=== PATIENT | female | born 1985 | race Caucasian/White ===

== ENCOUNTER → 2018-01-06 | Outpatient (CLI) | payer BC ==
[~2018-01-06] MED LIST: IBUP800 PO; VICODIN HP 10-1 EACH PO; Verotin-Gr Cap1 EACH PO
[2018-01-08 12:36] LABS: HPV Genotype 16 Not Detected (NOTDET); HPV Genotype 18 Not Detected (NOTDET)
[2018-01-17 08:30] LABS: HPV High Risk Other Not Detected (NOTDET)
== END | disposition home or self-care (01) ==
LOC: LAB SHORT 12:08 → LAB 12:08
PROVIDERS: Obstetrics & Gynecology
DX: Z01.419 Encounter for gynecological examination (general) (routine) without abnormal findings (principal)
CPT/HCPCS: 87624; G0123

== ENCOUNTER 2019-03-02 00:06 | Inpatient (IN) | payer BC ==
[~2019-03-02] VITALS: Ht 165.1 cm; Wt 98.2 kg
[2019-03-02 00:40] LABS: Source, Urine Voided
[2019-03-02 00:43] LABS: Bilirubin, Urine Neg (Neg); Blood, Urine 1+ (Neg); Glucose Qualitative, Urine Neg (Neg); Ketones, Urine Neg (Neg); Leukocyte Esterase, Urine Neg (Neg); Nitrite, Urine Neg (Neg); Protein, Urine Neg (Neg); Specific Gravity, Urine 1.015 (1.003-1.022); Urobilinogen, Urine NORM (Normal)
[2019-03-02 00:56] LABS: Appearance, Urine Clear (Clear); Color, Urine Yellow (P-Yellow)
[2019-03-02 00:57] LABS: Bacteria Rare /hpf; Red Blood Cells, Urine 0-2 /hpf (0-2); Squamous Epithelial Cells Rare /hpf (Few); White Blood Cells, Urine Not Seen /hpf (0-5)
[2019-03-02 02:12] LABS: BASOPHILS ABSOLUTE AUTO 0.03 K/mm3 (0.00-0.23); BASOPHILS PERCENT AUTO 0 % (0-2); EOSINOPHILS ABSOLUTE AUTO 0.06 K/mm3 (0.00-0.68); EOSINOPHILS PERCENT AUTO 0 % (0-6); Hematocrit 36.7 % (33.0-51.0); Hemoglobin 12.5 g/dL (11.5-16.0); IMMATURE GRAN ABSOLUTE AUTO 0.07 K/mm3 (0.00-0.10); IMMATURE GRAN PERCENT AUTO 1 % (0-1); LYMPHOCYTES ABSOLUTE AUTO 1.39 K/mm3 (0.84-5.20); LYMPHOCYTES PERCENT AUTO 10 % (21-46); MONOCYTES ABSOLUTE AUTO 0.54 K/mm3 (0.16-1.47); MONOCYTES PERCENT AUTO 4 % (4-13); Mean Corpuscular HGB 30.8 pg (26.0-34.0); Mean Corpuscular HGB Conc 34.1 g/dL (31.5-36.5); Mean Corpuscular Volume 90 fL (80-100); Mean Platelet Volume 9.6 fL (9.1-12.4); NEUTROPHILS ABSOLUTE AUTO 11.85 K/mm3 (1.96-9.15); NEUTROPHILS PERCENT AUTO 85 % (41-73); Platelet Count 249 K/mm3 (150-400); RDW Coefficient Variation 13.2 % (11.7-14.2); RDW Standard Deviation 43.9 fL (35.1-46.3); Red Blood Cell Count 4.06 M/mm3 (3.80-5.20); White Blood Cell Count 13.94 K/mm3 (4.00-11.30)
--- NOTE | 2019-03-02 19:15 | NUR ---
REPORT TO TRINI RASMUSSEN RN
[2019-03-03 05:26] LABS: BASOPHILS ABSOLUTE AUTO 0.02 K/mm3 (0.00-0.23); BASOPHILS PERCENT AUTO 0 % (0-2); EOSINOPHILS PERCENT AUTO 1 % (0-6); Hematocrit 29.9 % (33.0-51.0); Hemoglobin 10.1 g/dL (11.5-16.0); IMMATURE GRAN ABSOLUTE AUTO 0.04 K/mm3 (0.00-0.10); IMMATURE GRAN PERCENT AUTO 0 % (0-1); LYMPHOCYTES ABSOLUTE AUTO 1.72 K/mm3 (0.84-5.20); LYMPHOCYTES PERCENT AUTO 18 % (21-46); MONOCYTES ABSOLUTE AUTO 0.69 K/mm3 (0.16-1.47); MONOCYTES PERCENT AUTO 7 % (4-13); Mean Corpuscular HGB Conc 33.8 g/dL (31.5-36.5); Mean Corpuscular Volume 92 fL (80-100); Mean Platelet Volume 9.9 fL (9.1-12.4); NEUTROPHILS ABSOLUTE AUTO 7.13 K/mm3 (1.96-9.15); NEUTROPHILS PERCENT AUTO 74 % (41-73); Platelet Count 185 K/mm3 (150-400); RDW Coefficient Variation 13.3 % (11.7-14.2); RDW Standard Deviation 44.6 fL (35.1-46.3); Red Blood Cell Count 3.26 M/mm3 (3.80-5.20)
== END 2019-03-03 14:23 | disposition home or self-care (01) | DRG 807 ==
LOC: OBS 00:06 → BC 00:06 → OBS 01:29 → BC 01:32
PROVIDERS: Advanced Practice Midwife; ADMIT Nurse Practitioner Obstetrics & Gynecology
PROC: 10E0XZZ Delivery of Products of Conception, External Approach (ICD-10-PCS; principal; 2019-03-02)
PROC: 0HQ9XZZ Repair Perineum Skin, External Approach (ICD-10-PCS; 2019-03-02)
PROC: 3E0S3BZ Introduction of Anesthetic Agent into Epidural Space, Percutaneous Approach (ICD-10-PCS; 2019-03-02)
PROC: 00HU33Z Insertion of Infusion Device into Spinal Canal, Percutaneous Approach (ICD-10-PCS; 2019-03-02)
DX: O34.211 Maternal care for low transverse scar from previous cesarean delivery (principal); Z37.0 Single live birth; O70.0 First degree perineal laceration during delivery; Z3A.39 39 weeks gestation of pregnancy; I95.2 Hypotension due to drugs; T41.3X5A Adverse effect of local anesthetics, initial encounter; Y92.230 Patient room in hospital as the place of occurrence of the external cause; Z67.11 Type A blood, Rh negative
CPT/HCPCS: 36415; 51702; 59025; 81001; 85025; 86850; 86870; 86900; 86901; J1885; J2001; J2405; J2590; J3010; J7120

== ENCOUNTER → 2020-08-29 | Outpatient (CLI) | payer BC | LOC: LAB SHORT 11:43 → PLD 11:43 | DX: L08.89 Other specified local infections of the skin and subcutaneous tissue (principal) | CPT/HCPCS: 88305 ==

== ENCOUNTER 2021-01-01 05:03 | Inpatient (IN) | payer BC, OTHER ==
[~2021-01-01] VITALS: Ht 165.1 cm; Wt 105.0 kg
[2021-01-01 05:34] LABS: BASOPHILS ABSOLUTE AUTO 0.03 K/mm3 (0.00-0.23); BASOPHILS PERCENT AUTO 0 % (0-2); EOSINOPHILS ABSOLUTE AUTO 0.11 K/mm3 (0.00-0.68); EOSINOPHILS PERCENT AUTO 1 % (0-6); Hematocrit 34.5 % (33.0-51.0); Hemoglobin 11.9 g/dL (11.5-16.0); IMMATURE GRAN ABSOLUTE AUTO 0.04 K/mm3 (0.00-0.10); IMMATURE GRAN PERCENT AUTO 0 % (0-1); LYMPHOCYTES ABSOLUTE AUTO 2.02 K/mm3 (0.84-5.20); LYMPHOCYTES PERCENT AUTO 20 % (21-46); MONOCYTES ABSOLUTE AUTO 0.39 K/mm3 (0.16-1.47); MONOCYTES PERCENT AUTO 4 % (4-13); Mean Corpuscular HGB 30.3 pg (26.0-34.0); Mean Corpuscular HGB Conc 34.5 g/dL (31.5-36.5); Mean Corpuscular Volume 88 fL (80-100); Mean Platelet Volume 9.4 fL (9.1-12.4); NEUTROPHILS ABSOLUTE AUTO 7.53 K/mm3 (1.96-9.15); NEUTROPHILS PERCENT AUTO 74 % (41-73); Platelet Count 254 K/mm3 (150-400); RDW Coefficient Variation 13.6 % (11.7-14.2); RDW Standard Deviation 43.3 fL (35.1-46.3); Red Blood Cell Count 3.93 M/mm3 (3.80-5.20); White Blood Cell Count 10.12 K/mm3 (4.00-11.30)
[2021-01-02] MEDS ORDERED: IBUP800 PO (08:28)
[2021-01-02 11:45] LABS: BASOPHILS ABSOLUTE AUTO 0.02 K/mm3 (0.00-0.23); BASOPHILS PERCENT AUTO 0 % (0-2); EOSINOPHILS ABSOLUTE AUTO 0.06 K/mm3 (0.00-0.68); EOSINOPHILS PERCENT AUTO 1 % (0-6); Hematocrit 31.4 % (33.0-51.0); Hemoglobin 10.8 g/dL (11.5-16.0); IMMATURE GRAN ABSOLUTE AUTO 0.04 K/mm3 (0.00-0.10); IMMATURE GRAN PERCENT AUTO 0 % (0-1); LYMPHOCYTES ABSOLUTE AUTO 1.23 K/mm3 (0.84-5.20); LYMPHOCYTES PERCENT AUTO 10 % (21-46); MONOCYTES ABSOLUTE AUTO 0.66 K/mm3 (0.16-1.47); MONOCYTES PERCENT AUTO 6 % (4-13); Mean Corpuscular HGB 30.3 pg (26.0-34.0); Mean Corpuscular HGB Conc 34.4 g/dL (31.5-36.5); Mean Corpuscular Volume 88 fL (80-100); Mean Platelet Volume 9.7 fL (9.1-12.4); NEUTROPHILS ABSOLUTE AUTO 10.01 K/mm3 (1.96-9.15); NEUTROPHILS PERCENT AUTO 83 % (41-73); Platelet Count 222 K/mm3 (150-400); RDW Coefficient Variation 13.4 % (11.7-14.2); RDW Standard Deviation 43.2 fL (35.1-46.3); Red Blood Cell Count 3.57 M/mm3 (3.80-5.20); White Blood Cell Count 12.02 K/mm3 (4.00-11.30)
--- NOTE | 2021-01-02 18:55 | NUR ---
STABLE. NO ACUTE CHANGES. REPORT GIVEN TO ONCOMING SHIFT. CARING FOR SELF AND BABY INDEPENDANTLY.
[2021-01-03] MEDS ORDERED: Norco 5-325 Ta1 EACH PO (09:01)
--- NOTE | 2021-01-03 09:40 | NUR ---
DISCHARGE PT ABOUT READY TO GO HOME. VERBALIZES UNDERSTANDING OF DC INSTRUCTIONS AND FOLLOW UP APOINTMENTS. EXPERIENCED PARENTS AND CARING FOR SELF AND BABY INDEPENDANTLY. NO QUESTIONS OR CONCERNS.
== END 2021-01-03 10:52 | disposition home or self-care (01) | DRG 807 ==
LOC: OBS 05:03 → BC 05:08 → OBS 05:12 → BC 05:14
PROVIDERS: ADMIT Nurse Practitioner Obstetrics & Gynecology
PROC: 10E0XZZ Delivery of Products of Conception, External Approach (ICD-10-PCS; principal; 2021-01-01)
PROC: 10907ZC Drainage of Amniotic Fluid, Therapeutic from Products of Conception, Via Natural or Artificial Opening (ICD-10-PCS; 2021-01-01)
PROC: 3E033VJ Introduction of Other Hormone into Peripheral Vein, Percutaneous Approach (ICD-10-PCS; 2021-01-01)
PROC: 10H07YZ Insertion of Other Device into Products of Conception, Via Natural or Artificial Opening (ICD-10-PCS; 2021-01-01)
PROC: 3E0R3BZ Introduction of Anesthetic Agent into Spinal Canal, Percutaneous Approach (ICD-10-PCS; 2021-01-01)
PROC: 00HU33Z Insertion of Infusion Device into Spinal Canal, Percutaneous Approach (ICD-10-PCS; 2021-01-01)
PROC: 0HQ9XZZ Repair Perineum Skin, External Approach (ICD-10-PCS; 2021-01-01)
DX: O34.219 Maternal care for unspecified type scar from previous cesarean delivery (principal); Z37.0 Single live birth; Z3A.39 39 weeks gestation of pregnancy; O70.0 First degree perineal laceration during delivery; O69.89X0 Labor and delivery complicated by other cord complications, not applicable or unspecified; Z20.822 Contact with and (suspected) exposure to COVID-19
CPT/HCPCS: 0241U; 36415; 51702; 85025; 86850; 86870; 86900; 86901; A9270; J1885; J2001; J2210; J2590; J3010; J7120

== ENCOUNTER → 2023-09-11 | Outpatient (CLI) | payer OTHER ==
[~2023-09-11] MED LIST changes: +Norco 5-325 Ta1 EACH PO
[2023-09-11 15:56] LABS: BASOPHILS ABSOLUTE AUTO 0.03 K/mm3 (0.00-0.23); BASOPHILS PERCENT AUTO 1 % (0-2); EOSINOPHILS ABSOLUTE AUTO 0.11 K/mm3 (0.00-0.68); EOSINOPHILS PERCENT AUTO 2 % (0-6); Hematocrit 36.9 % (33.0-51.0); Hemoglobin 13.2 g/dL (11.5-16.0); IMMATURE GRAN ABSOLUTE AUTO 0.01 K/mm3 (0.00-0.10); IMMATURE GRAN PERCENT AUTO 0 % (0-1); LYMPHOCYTES ABSOLUTE AUTO 1.12 K/mm3 (0.84-5.20); LYMPHOCYTES PERCENT AUTO 18 % (21-46); MONOCYTES ABSOLUTE AUTO 0.37 K/mm3 (0.16-1.47); MONOCYTES PERCENT AUTO 6 % (4-13); Mean Corpuscular HGB 30.8 pg (26.0-34.0); Mean Corpuscular HGB Conc 35.8 g/dL (31.5-36.5); Mean Corpuscular Volume 86 fL (80-100); Mean Platelet Volume 10.2 fL (9.1-12.4); NEUTROPHILS ABSOLUTE AUTO 4.52 K/mm3 (1.96-9.15); NEUTROPHILS PERCENT AUTO 73 % (41-73); Platelet Count 244 K/mm3 (150-400); RDW Coefficient Variation 12.5 % (11.7-14.2); Red Blood Cell Count 4.29 M/mm3 (3.80-5.20); White Blood Cell Count 6.16 K/mm3 (4.00-11.30)
[2023-09-11 16:35] LABS: Albumin, Blood 4.1 g/dL (3.4-5.0); Albumin/Globulin Ratio 1.1 (0.8-1.8); Bilirubin, Total 5.8 mg/dL (0.1-1.0); Bun/Creatinine Ratio 11.7 (12.0-20.0); Calcium, Blood 8.9 mg/dL (8.5-10.1); Creatinine, Blood 0.68 mg/dL (0.40-1.00); Globulin, Blood 3.7 g/dL (2.2-4.0); Potassium, Blood 3.5 mmol/L (3.5-5.5); Total Protein, Blood 7.8 g/dL (6.4-8.2)
== END ==
LOC: LAB 14:58 → LAB SHORT 14:58
PROVIDERS: Physician Assistant
DX: R10.9 Unspecified abdominal pain (principal)
CPT/HCPCS: 80053; 83690; 85025

== ENCOUNTER 2024-07-23 03:01 | Inpatient (IN) | payer OTHER ==
[~2024-07-23] VITALS: Ht 177.8 cm; Wt 86.9 kg
[2024-07-23] VITALS (70 sets, daily range): BP systolic 50–177; BP diastolic 34–125
[2024-07-23 03:16] LABS: Calcium, Ionized (POC) 1.15 mmol/L (1.10-1.46); Chloride (POC) 107 mmol/L (98-108); Creatinine (POC) 0.9 mg/dL (0.6-1.0); Glucose (ISTAT POC) 473 mg/dL (70-99); Hemoglobin (POC) 12.2 g/dL (12.0-16.0); Potassium (POC) 3.2 mmol/L (3.5-5.5); Sodium (POC) 140 mmol/L (135-148); Total CO2 (POC) 15 mmol/L (21-32)
[2024-07-23 03:24] LABS: Hematocrit 38.5 % (33.0-51.0); Hemoglobin 12.2 g/dL (11.5-16.0); Mean Corpuscular HGB 30.9 pg (26.0-34.0); Mean Corpuscular HGB Conc 31.7 g/dL (31.5-36.5); Mean Corpuscular Volume 98 fL (80-100); NRBC ABSOLUTE 0.04 K/mm3 (0.00-0.02); NRBC Auto 0.2 /100 WBC (0.0-0.2); Platelet Count 180 K/mm3 (150-400); RDW Coefficient Variation 12.7 % (11.7-14.2); RDW Standard Deviation 45.2 fL (35.1-46.3); Red Blood Cell Count 3.95 M/mm3 (3.80-5.20); White Blood Cell Count 26.54 K/mm3 (4.00-11.30)
[2024-07-23] MEDS ORDERED: Heparin Sodium 5000 Units/ML 1ML MDV IV ONE (03:30)
[2024-07-23] MEDS ORDERED: Aspirin 300 MG Supp PR ONE (03:30)
[2024-07-23 03:36] LABS: Bicarbonate Venous 10.1 mmol/L (24.0-30.0); PCO2 Venous 48.3 mmHg (38-42); pH Blood Venous 6.98 (7.34-7.37)
[2024-07-23 03:37] LABS: Base Excess Venous -20.4 mmol/L
[2024-07-23 03:38] LABS: Alanine Aminotransfer (ALT/SGP 471 U/L (12-78); Alk Phos 101 U/L (50-136); Anion Gap 26 mmol/L (3-11); Aspartate Aminotrans (AST/SGOT 386 U/L (12-37); Bilirubin, Total 0.3 mg/dL (0.1-1.0); Blood Urea Nitrogen 15 mg/dL (8-24); Bun/Creatinine Ratio 19.8 (12.0-20.0); CO2, Blood 13 mmol/L (21-32); Calcium, Blood 8.9 mg/dL (8.5-10.1); Chloride, Blood 107 mmol/L (98-108); Creatinine, Blood 0.76 mg/dL (0.40-1.00); Ethanol (Alcohol), Blood, Med <3 mg/dL; Globulin, Blood 2.9 g/dL (2.2-4.0); Glomerular Filtration Rate 102 (60-); Glucose, Blood 474 mg/dL (70-99); Potassium, Blood 3.4 mmol/L (3.5-5.5); Sodium, Blood 143 mmol/L (136-145); Total Protein, Blood 5.9 g/dL (6.4-8.2)
[2024-07-23] MEDS ORDERED: NS 1,000 ML IV ONE ×5 (03:39→10:00)
[2024-07-23] MEDS ORDERED: Verapamil HCL 2.5 MG/ML 2ML Injection ONE ×2 (03:39→03:50)
[2024-07-23] MEDS ORDERED: Heparin Sodium 1000 Units/ML 10ML MDV ONE (03:39)
[2024-07-23] MEDS ORDERED: NS 250 ML IV ONE (03:39)
[2024-07-23] MEDS ORDERED: Nitroglycerin 2 MG/20 ML BTL ONE (03:40)
[2024-07-23 03:41] LABS: International Normalized Ratio 1.08; Prothrombin Time Results 11.5 Sec (9.7-11.5)
[2024-07-23] MEDS ORDERED: FentaNYL Citrate 50 MCG/ML 2 ML Injection ONE (03:41)
[2024-07-23] MEDS ORDERED: Midazolam HCl 1MG / ML 2ML Vial ONE (03:41)
[2024-07-23] MEDS ORDERED: Phenylephrine HCl 100 MCG/ML-NS 10MLSYR (1MG/10ML) ONE (03:42)
[2024-07-23] MEDS ORDERED: Atropine Sulfate 0.1 MG/ML 10ML SYR ONE (03:42)
[2024-07-23 03:53] LABS: BAND PERCENT MAN 17 % (0-8); BASOPHILS PERCENT MAN 0 % (0-2); EOSINOPHILS ABSOLUTE MAN 0.53 K/mm3 (0.00-0.68); EOSINOPHILS PERCENT MAN 2 % (0-6); LYMPHOCYTES ABSOLUTE MAN 9.81 K/mm3 (0.84-5.20); LYMPHOCYTES PERCENT MAN 37 % (21-46); METAMYELOCYTE ABSOLUTE MAN 1.85 K/mm3 (0.00-0.00); METAMYELOCYTE PERCENT MAN 7 % (0-0); MONOCYTES ABSOLUTE MAN 1.06 K/mm3 (0.16-1.47); MONOCYTES PERCENT MAN 4 % (4-13); MYELOCYTE ABSOLUTE MAN 0.79 K/mm3 (0.00-0.00); MYELOCYTE PERCENT MAN 3 % (0-0); NEUTROPHILS ABSOLUTE MAN 12.47 K/mm3 (1.96-9.15); SEG NEUTROPHILS PERCENT MAN 30 % (41-73); TOTAL CELLS COUNTED 100
[2024-07-23] MEDS ORDERED: Tirofiban HCL Monohydrate 3.75 MG/15 ML Vial ONE (04:30)
[2024-07-23] MEDS ORDERED: Ticagrelor 90 MG TABLET ONE (04:56)
[2024-07-23] MEDS ORDERED: Ticagrelor 90 MG TABLET PO ONE (05:05)
[2024-07-23] MEDS ORDERED: NS 1,000 ML IV SCH ×2 (05:05→16:00)
[2024-07-23] MEDS ORDERED: propofoL 100 ML IV SCH (05:15)
[2024-07-23] MEDS ORDERED: Ondansetron HCl 2 MG / ML 2ML Vial IV PRN (05:30)
[2024-07-23] MEDS ORDERED: FLU VACC TS2024-25(6MOS UP)/PF 45 MCG/0.5 ML SYRINGE IM SCH (05:30)
[2024-07-23] MEDS ORDERED: Cetylpyridinium Chloride 1 EA MISC MT SCH (05:35)
[2024-07-23] MEDS ORDERED: Sodium Bicarb 8.4% Inj 100 MEQ in Sodium Chloride 0.45% 1,000 ML IV SCH (05:40)
[2024-07-23 05:53] LABS: BASOPHILS ABSOLUTE AUTO 0.22 K/mm3 (0.00-0.23); BASOPHILS PERCENT AUTO 1 % (0-2); EOSINOPHILS ABSOLUTE AUTO 0.13 K/mm3 (0.00-0.68); EOSINOPHILS PERCENT AUTO 0 % (0-6); Hematocrit 46.9 % (33.0-51.0); Hemoglobin 15.5 g/dL (11.5-16.0); IMMATURE GRAN ABSOLUTE AUTO 0.46 K/mm3 (0.00-0.10); IMMATURE GRAN PERCENT AUTO 2 % (0-1); LYMPHOCYTES ABSOLUTE AUTO 4.57 K/mm3 (0.84-5.20); LYMPHOCYTES PERCENT AUTO 16 % (21-46); MONOCYTES ABSOLUTE AUTO 0.35 K/mm3 (0.16-1.47); MONOCYTES PERCENT AUTO 1 % (4-13); Mean Corpuscular HGB 30.5 pg (26.0-34.0); Mean Platelet Volume 9.6 fL (9.1-12.4); NEUTROPHILS ABSOLUTE AUTO 23.38 K/mm3 (1.96-9.15); NEUTROPHILS PERCENT AUTO 80 % (41-73); Platelet Count 462 K/mm3 (150-400); RDW Coefficient Variation 12.9 % (11.7-14.2); RDW Standard Deviation 43.3 fL (35.1-46.3); Red Blood Cell Count 5.09 M/mm3 (3.80-5.20); White Blood Cell Count 29.11 K/mm3 (4.00-11.30)
[2024-07-23] MEDS ORDERED: Potassium Chl 20MEQ/Water100ML 100 ML IV SCH ×2 (05:55→16:00)
[2024-07-23] MEDS ORDERED: Sodium Bicarb 8.4% 50 mEq Syringe IV ONE (06:00)
[2024-07-23] MEDS ORDERED: Magnesium Sulf 2 GM/Water 50ML 50 ML IV ONE (06:10)
[2024-07-23 06:22] LABS: Bun/Creatinine Ratio 23.6 (12.0-20.0); Calcium, Blood 8.5 mg/dL (8.5-10.1); Creatinine, Blood 0.85 mg/dL (0.40-1.00); Magnesium, Blood 2.9 mg/dL (1.6-2.4); Potassium, Blood 2.7 mmol/L (3.5-5.5)
[2024-07-23 06:39] LABS: Mean Corpuscular Volume 92 fL (80-100)
--- NOTE | 2024-07-23 07:30 | NUR ---
PATIENT TO ICU ROOM 13 FROM CLASSROOM ASSISTANT AT APPROX 0512. PATIENT ON VENT UPON ARRIVAL TO UNIT. SOME MOVEMENT, COUGH AND GAG PRESENT, NO EYE OPENING OR FOLLOWING COMMANDS. PROPOFOL STARTED. VENT SETTINGS AC/VC 22/450/10/80% RR 24, SUCTIONING LARGE AMOUNT OF RYDER RED BLOOD FROM ETT AND MOUTH. LS CLEAR. HR SR 80s, POSSIBLE RUN OF VTACH. BP LABILE. TEMP YOUNG PATENT AND DRAINING TO GRAVITY. TEMP 95.8 UPON ARRIVAL. PATIENT STARTED HAVING LARGE LIQUID BROWN STOOLS, RECTAL TUBE PLACED. PUPILS BECAME MORE DILATED AND SLUGGISH. DR. ROBERTSON AT BEDSIDE TO PLACE CENTRAL LINE. 2 AMPS BICARB PUSH GIVEN, AMIO STARTED. AT BEDSIDE AND UPDATED ON PATIENT CONDITION.
[2024-07-23] MEDS ORDERED: Carvedilol 6.25 MG Tab PO SCH (08:00)
[2024-07-23] MEDS ORDERED: Vasopressin 20 UNITS in NS 100 ML IV SCH (08:00)
[2024-07-23 08:49] LABS: Base Excess Venous -8.8 mmol/L; Bicarbonate Venous 16.8 mmol/L (24.0-30.0); PCO2 Venous 51.2 mmHg (38-42); PO2 Venous 46.8 mmHg (38-42); pH Blood Venous 7.19 (7.34-7.37)
[2024-07-23] MEDS ORDERED: Pantoprazole Sodium 40 MG Injection IV SCH (09:00)
[2024-07-23] MEDS ORDERED: Ticagrelor 90 MG TABLET PO SCH (09:00)
[2024-07-23] MEDS ORDERED: Losartan Potassium 50 MG Tab PO SCH (09:00)
[2024-07-23] MEDS ORDERED: Aspirin 81 MG Chew PO SCH (09:00)
[2024-07-23] MEDS ORDERED: Enoxaparin 40 MG/0.4 ML SYR SC SCH (09:00)
[2024-07-23] MEDS ORDERED: Albumin (Human) 25gm/100ml 100 ML IV SCH (09:25)
[2024-07-23] MEDS ORDERED: Piperacillin/Tazobactam Sod 3.375 GM in NS 100 ML IV SCH (10:25)
[2024-07-23 10:27] LABS: Source, Urine Foley catheter
[2024-07-23] MEDS ORDERED: HYDROmorphone HCl/Pf 1MG SYR ONE (10:48)
[2024-07-23 10:54] LABS: Appearance, Urine Hazy (Clear); Bilirubin, Urine Neg (Neg); Blood, Urine 5+ (Neg); Color, Urine Yellow (P-Yellow); Glucose Qualitative, Urine 2+ (Neg); Ketones, Urine Neg (Neg); Leukocyte Esterase, Urine Neg (Neg); Nitrite, Urine Neg (Neg); Protein, Urine 3+ (Neg); Specific Gravity, Urine 1.015 (1.003-1.022); Urobilinogen, Urine NORM (Normal)
[2024-07-23] MEDS ORDERED: Midazolam HCl 1MG / ML 2ML Vial IV PRN (10:55)
[2024-07-23] MEDS ORDERED: FentaNYL Citrate 50 MCG/ML 2 ML Injection IV PRN ×2 (10:55→20:03)
[2024-07-23] MEDS ORDERED: HYDROmorphone HCl/Pf 1MG SYR IV ONE (11:00)
[2024-07-23 11:06] LABS: U Amphetamine Screen Not Detected; U Barbituate Screen Not Detected; U Benzodiazapine Screen Not Detected; U Buprenorphine Screen Not Detected; U Cannabinoids Screen Not Detected; U Cocaine Screen Not Detected; U Methadone Screen Not Detected; U Methamphetamine Screen Not Detected; U Opiates Screen Not Detected; U Oxycodone Screen Not Detected; U Phencyclidine Screen Not Detected
[2024-07-23 11:12] LABS: Bacteria Mod /hpf; Mucus Light (0-Heavy); Squamous Epithelial Cells Few /hpf (Few)
[2024-07-23 11:14] LABS: Amorphous Light (0-Heavy)
[2024-07-23 11:16] LABS: Influenza A, PCR NEGATIVE (NEGATIVE); Influenza B, PCR NEGATIVE (NEGATIVE); Resp Syncytial Virus, PCR NEGATIVE (NEGATIVE); SARS-Cov-2 (COVID-19) PCR, MMC NEGATIVE (NEGATIVE)
[2024-07-23 11:58] LABS: Campylobacter Sp Not Detected (NOT DETECT); Cryptosporidium Not Detected (NOT DETECT); Cyclospora Cayetanensis Not Detected (NOT DETECT); E. Coli O157 Not Detected (NOT DETECT); Enteroaggregative E. coli-EAEC Not Detected (NOT DETECT); Enteropathogenic E. coli-EPEC Not Detected (NOT DETECT); Enterotoxigenic E. coli-ETEC Not Detected (NOT DETECT); Plesiomonas Shigelloides Not Detected (NOT DETECT); Salmonella Sp Not Detected (NOT DETECT); Shiga Toxin-prod E. coli-STEC Not Detected (NOT DETECT); Shigella/Enteroin E. coli-EIEC Not Detected (NOT DETECT); Vibrio Cholerae Not Detected (NOT DETECT); Vibrio Sp Not Detected (NOT DETECT); Yersinia Enterocolitica Not Detected (NOT DETECT)
[2024-07-23 11:59] LABS: Adenovirus F 40/41 Not Detected (NOT DETECT); Astrovirus Not Detected (NOT DETECT); Entamoeba Histolytica Not Detected (NOT DETECT); Giardia Lamblia Not Detected (NOT DETECT); Norovirus GI/GII Not Detected (NOT DETECT); Rotavirus A Not Detected (NOT DETECT); Sapovirus Not Detected (NOT DETECT)
[2024-07-23] MEDS ORDERED: Hydrogen Peroxide 1.5 % Solution MT SCH (12:00)
[2024-07-23] MEDS ORDERED: NS 250 ML IV PRN (12:05)
--- NOTE | 2024-07-23 13:42 | NUR ---
AM NOTE.... ASSUMED CARE OF PT AT 0700, PT IS INTUBATED AND SEDATED IN THE PROCESS OF GETTING A RIGHT IJ CENTRAL LINE. PT'S ET TUBE IS 7.0 AND 24 AT THE TEETH. VENT SETTINGS ARE AC/VC: 2/450/10/100% WITH O2 SATS>95% L/S CLEAR T/O. PT HAS A LARGE AMOUNT OF RYDER RED BLOOD COMING FROM HER MOUTH AND ET TUBE WITH SUCTION. SUCTION FROM THE ET TUBE IS RYDER RED AND THICK. PT IS IN SR IN THE 80'S-90'S BP SOFT BUT IS STABLE WITH MAPS>65 AT 0700. NO EDEMA IS NOTED ON THIS ASSESSMENT. BT PRESENT AND HYPERACTIVE, PT HAS A LARGE AMOUNT OF LIQUID STOOL NOTED IN THE BED, A RECTAL TUBE IS IN PLACE BUT STOOL IS LEAKING OUT AROUND IT. THE RECTAL TUBE WAS D/C'd D/T CONTINUED LEAKING STOOL. TEMP YOUNG IS PATENT AND DRAINING TO GRAVITY. AT AROUND 0745 THE PT'S ETCO2 DROPPED FROM THE HIGH 20'S TO 17-18, THE PT'S BP WAS NOTED TO BE HYPOTENSIVE AT THIS TIME WITH MAPS IN THE 40'S, PROVIDER WAS NOTIFIED AND LEVOPHED DRIP WAS STARTED ALONG WITH A BOLUS, THE LEVOPHED DRIP WAS TITRATED UP TO 30MCG/MIN AND VASOPRESSIN WAS STARTED AT 0.04U/HR. THE PT WAS GIVEN 3L BOLUS OF NS PER PROVIDER'S ORDERS, AFTER THE FLUIDS THE LEVOPHED HAS BEEN SLOWLY TITRATED DOWN TO ITS CURRENT RATE OF 12MCG/MIN WITH MAPS>65. ERIKA PT HAS A BICARB DRIP RUNNING AT 100MLS/HR, NS AT 200MLS/HR, PROPOFOL IS RUNNING AT 40MCG/KG. THE PT HAD 3 EPISODES OF A LARGE AMOUNT OF LIQUID BROWN STOOLS, A SAMPLE WAS SENT TO THE LAB WHICH WAS NEGATIVE. RESPIRATORY PCR WAS NEGATIVE WELL. A SEDATION VACATION WAS STARTED ON THIS PT AT 1100, THE PT WAS AGITATED AND TRASHING IN THE BED BUT WAS ABLE TO OPEN HER EYES TO COMMAND AND TRACK MOVEMENT SEVERAL TIMES BUT NOT EACH TIME SHE WAS ASKED, PT ALSO DID NOT FOLLOW ANY OTHER COMMANDS AT THIS TIME. FAMILY HAS BEEN AT THE BEDSIDE SINCE ADMIT. PT HAS HAD SEVERAL SMALL RUNS OF SELF-LIMITING VTACH WITH NO CHANGES IN HER VS. PT WENT TO CT FOR HEAD AND CHEST CT, PT HAD A FEW EPISODES OF ECTOPY DURING THE TRANSFER WITH NO CHANGES TO HER VS AT THAT TIME. WILL CONTINUE TO MONITOR.
[2024-07-23] MEDS ORDERED: EPINEPhrine HCl 0.1 MG/ML 10ML SYR XX ONE (14:21)
[2024-07-23] MEDS ORDERED: Calcium Chloride 10% 10 ML SYR IV ONE (14:21)
[2024-07-23] MEDS ORDERED: Sodium Bicarb 8.4% 1 MEQ/ML 50 ML Vial IV ONE (14:21)
[2024-07-23 14:31] LABS: Albumin, Blood 3.6 g/dL (3.4-5.0); Anion Gap 15 mmol/L (3-11); Blood Urea Nitrogen 27 mg/dL (8-24); Bun/Creatinine Ratio 20.8 (12.0-20.0); CO2, Blood 22 mmol/L (21-32); Calcium, Blood 7.5 mg/dL (8.5-10.1); Chloride, Blood 110 mmol/L (98-108); Glomerular Filtration Rate 53 (60-); Glucose, Blood 155 mg/dL (70-99); Potassium, Blood 2.9 mmol/L (3.5-5.5); Sodium, Blood 144 mmol/L (136-145)
[2024-07-23] MEDS ORDERED: Albuterol 2.5 MG/3 ML VIAL INH PRN (14:50)
[2024-07-23] MEDS ORDERED: Acetaminophen 160MG / 5ML 10.15 UDC PT PRN (15:00)
[2024-07-23] MEDS ORDERED: Sodium Bicarb 8.4% Inj 100 MEQ in Sodium Chloride 0.45% 1,000 ML IV ONE (15:50)
--- NOTE | 2024-07-23 18:12 | NUR ---
SHIFT SUMMARY.... PT CONTINUES TO BE ON THE VENT AT 22/450/5/35% WITH O2 SATS>95%. VASOPRESSIN IS OFF, LEVOPHED DRIP IS DOWN TO 2MCG/MIN. NS IS RUNNING AT 75MLS/HR, BICARB IS AT 100MLS/HR PROPOFOL DRIP IS RUNNING AT 40MCG/KG. PT CONTINUES TO HAVE LARGE AMOUNTS OF RYDER RED BLOOD IN HER MOUTH, TRACHIAL SUCTION IS NOW MORE OF A RUST COLOR. PT'S YOUNG IS PATENT AND DRAINED 1500MLS OF YELLOW URINE TO GRAVITY. PT'S FAMILY CONTINUE TO BE AT THE BEDSIDE, TMAX THIS SHIFT IS 99.8, ICE, FANS AND TYLENOL WERE GIVEN WITH NO IMPROVEMENT. WILL CONTINUE TO MONITOR UNTIL REPORT IS GIVEN TO ONCOMING RN.
--- NOTE | 2024-07-23 20:03 | NUR ---
ASSUMPTION OF CARE: RECEIVED REPORT FROM DESIRAE MCDONNELL AT 1900. PT INTUBATED AND SEDATED ON 20 MCG/KG/MIN. PT OPENS EYES AND TRACKS. MOVES ALL EXTRMETIES BUT DOES NOT FOLLOW COMMANDS YET. PT WITHDRAWS TO PAINFUL STIMULI. PUPILS EQUAL AND REACTIVE. VENT SETTINGS AC/VC 22/450/5/35%. SPO2 HIGH 90'S. LUNGS CLEAR. DIAPER FOLDER IN PLACE, SR WITH HR 80'S. SBP 90'S-100'S. MAP >65. LEVO CURRENTLY ON SB. TEMP YOUNG IN PLACE, DRAINING TO GRAVITY. TEMP 99.9 ON ASSESSMENT. CENTRAL LINE TO RIJ PATENT AND INFUSING. KCL INFUSING. BICARB AT 100 ML/HR. OGT CLAMPED. NO BM YET. PIVS INTACT. PT HAS COPIOUS RED SECRETIONS NOTED FROM MOUTH AND ET TUBE. FAMILY AT THE BEDSIDE, BED LOW AND LOCKED.
[2024-07-23] MEDS ORDERED: Atorvastatin 40 MG Tab PO SCH (21:00)
[2024-07-23] MEDS ORDERED: Atorvastatin 40 MG Tab PT SCH (21:00)
[2024-07-23] MEDS ORDERED: Ticagrelor 90 MG TABLET PT SCH (21:00)
[2024-07-23] MEDS ORDERED: Rocuronium Bromide 10 MG/ML 5ML Injection IV ONE (21:37)
[2024-07-24] VITALS (68 sets, daily range): BP systolic 89–122; BP diastolic 60–84
[2024-07-24 04:32] LABS: BASOPHILS ABSOLUTE AUTO 0.03 K/mm3 (0.00-0.23); BASOPHILS PERCENT AUTO 0 % (0-2); EOSINOPHILS ABSOLUTE AUTO 0.01 K/mm3 (0.00-0.68); EOSINOPHILS PERCENT AUTO 0 % (0-6); Hematocrit 24.8 % (33.0-51.0); Hemoglobin 9.1 g/dL (11.5-16.0); IMMATURE GRAN ABSOLUTE AUTO 0.04 K/mm3 (0.00-0.10); IMMATURE GRAN PERCENT AUTO 0 % (0-1); LYMPHOCYTES ABSOLUTE AUTO 1.21 K/mm3 (0.84-5.20); LYMPHOCYTES PERCENT AUTO 8 % (21-46); MONOCYTES ABSOLUTE AUTO 0.72 K/mm3 (0.16-1.47); MONOCYTES PERCENT AUTO 5 % (4-13); Mean Corpuscular HGB 31.3 pg (26.0-34.0); Mean Corpuscular HGB Conc 36.7 g/dL (31.5-36.5); Mean Platelet Volume 10.1 fL (9.1-12.4); NEUTROPHILS ABSOLUTE AUTO 12.32 K/mm3 (1.96-9.15); NEUTROPHILS PERCENT AUTO 86 % (41-73); Platelet Count 188 K/mm3 (150-400); RDW Coefficient Variation 13.1 % (11.7-14.2); RDW Standard Deviation 40.3 fL (35.1-46.3); Red Blood Cell Count 2.91 M/mm3 (3.80-5.20); White Blood Cell Count 14.33 K/mm3 (4.00-11.30)
[2024-07-24 04:33] LABS: Mean Corpuscular Volume 85 fL (80-100)
[2024-07-24 04:52] LABS: Albumin, Blood 2.9 g/dL (3.4-5.0); Albumin/Globulin Ratio 1.3 (0.8-1.8); Bilirubin, Total 0.8 mg/dL (0.1-1.0); Bun/Creatinine Ratio 19.3 (12.0-20.0); Calcium, Blood 6.8 mg/dL (8.5-10.1); Creatinine, Blood 1.71 mg/dL (0.40-1.00); Globulin, Blood 2.3 g/dL (2.2-4.0); Magnesium, Blood 2.2 mg/dL (1.6-2.4); Phosphorus, Blood 2.8 mg/dL (2.5-4.9); Potassium, Blood 3.4 mmol/L (3.5-5.5); Total Protein, Blood 5.2 g/dL (6.4-8.2)
[2024-07-24] MEDS ORDERED: Potassium Chloride 40 MEQ IV ONE (05:15)
--- NOTE | 2024-07-24 05:19 | NUR ---
SHIFT SUMMARY: PT REMAINS INTUBATED AND SEDATED ON 40 MCG/KG/MIN OF PROPOFOL. PT BECOMES VERY AGGITATED WITH STIMULATION. MEDICATED PER EMAR WITH PRN FENTANYL AND VERSED. PT OPENS EYES TO VERBAL STIMULI, WITHDRAWS TO PAIN. ATTEMPTS TO SQUEEZE HANDS AT TIMES. PT HAS COPIOUS AMOUNTS OF BLOODY SECRETIONS FROM MOUTH AND ET TUBE. VENT SETTINGS UNCHANGED THIS SHIFT. SPO2 HIGH 90'S T/O THE SHIFT. RR 20'S. ETCO2 20'S. LUNGS REMAIN CLEAR. DATER ASSEMBLER REMAINS, SR WITH HR 80'S. SBP 90'S WITH MAP >65. TR BAND SITE SHOWS NO SIGNS OF BLEEDING OR HEMATOMA, ARMBOARD IN PLACE. CENTRAL LINE TO RIJ PATENT AND INFUSING. YOUNG DRAINING TO GRAVITY. NO BM THIS SHIFT. FAMILY REMAINS AT BEDSIDE T/O THE SHIFT. BED LOW AND LOCKED.
[2024-07-24] MEDS ORDERED: Potassium Chl 20MEQ/Water100ML 100 ML IV SCH (05:25)
[2024-07-24] MEDS ORDERED: Aspirin 81 MG Chew PT SCH (09:00)
[2024-07-24] MEDS ORDERED: Linezolid 600MG/Iso-Dext 300ML 300 ML IV SCH (09:00)
[2024-07-24] MEDS ORDERED: dexmedeTOMIDine 100 ML IV SCH (10:10)
[2024-07-24 10:34] LABS: Hematocrit 25.2 % (33.0-51.0); Hemoglobin 8.9 g/dL (11.5-16.0)
[2024-07-24] MEDS ORDERED: Metoprolol Tartrate 25 MG Tab PT SCH (14:00)
[2024-07-24 16:09] LABS: Hematocrit 23.9 % (33.0-51.0); Hemoglobin 8.4 g/dL (11.5-16.0)
[2024-07-24] MEDS ORDERED: Oxymetazoline 0.05% Nasal Relief Spray 15mL BTL ONE (18:00)
--- NOTE | 2024-07-24 18:57 | NUR ---
DR EDMONDS / SHIFT SUMMARY: PROVIDER AT BEDSIDE THIS EVENING FOR CONSULTATION & BEDSIDE PROCEDURE COMPLETED WITH BRONCHOSCOPE TO VISUALIZE THE PT's NASAL & ORAL AIRWAYS. 174 - DR EDMONDS AT BEDSIDE & CONFIRMED PROCEDURE WITH PT. 174 - PROPOFOL 50 MCG/KG/MIN, RASS +1, AFRIN NASAL SPRAY PER DR EDMONDS. 175 - PROPOFOL 60 MCG/KG/MIN, RASS +1. 1803 - 10 MG ROCURONIUM IVP. 180 - 10 MG ROCURONIUM IVP. 181 - 10 MG ROCURONIUM IVP. 182 - BRONCHOSCOPE REMOVED & PROCEDURE CONCLUDED. 182 - PROPOFOL 50 MCG/KG/MIN, RASS -1. 182 - PROPOFOL 45 MCG/KG/MIN, RASS -1. NO ACUTE CHANGES SINCE PRIOR UPDATES. PT REMAINS SEDATED & INTUBATED. O2 SATS > 94%. MONITOR SHOWS SR WITH HR 80s, BP STABLE. OGT CLAMPED. TEMP YOUNG PATENT/ DRAINING YELLOW URINE. SKIN CONDITION OVERALL UNCHANGED WITH Q2H REPOSITIONING TO MAINTAIN SKIN INTEGRITY. WILL CONTINUE TO MONITOR & REPORT OFF TO ONCOMING RN.
[2024-07-24] MEDS ORDERED: Oxymetazoline 0.05% Nasal Relief Spray 15mL BTL SCH (21:00)
[2024-07-24 21:07] LABS: Calcium, Blood 7.1 mg/dL (8.5-10.1); Creatinine, Blood 1.72 mg/dL (0.40-1.00); Potassium, Blood 3.6 mmol/L (3.5-5.5)
[2024-07-24] MEDS ORDERED: Potassium Chloride 20 MEQ/15 ML UDC PO ONE (22:05)
--- NOTE | 2024-07-24 23:15 | NUR ---
ASSUMPTION OF CARE: RECEIVED REPORT FROM TALHA Rosenberg RN AT 1915. PT INTUBATED AND SEDATED ON 30 MCG/KG/MIN OF PROPOFOL WITH ADJUNCT PRN MEDICATIONS. PT OPENS EYES TO VERBAL STIMULI AND TRACKS. WITHDRAWS TO PAINFUL STIMULI BUT BECOMES VERY AGGITATED AND ANXIOUS AND IS NOT REDIRECTABLE OR FOLLOWING COMMANDS. VENT SETTINGS AC/VC 17/450/5/35%. SPO2 MID TO HIGH 90'S. LUNGS CLEAR/COARSE. MORE DIM ON THE RIGHT SIDE. SBP 90'S-100'S, SR WITH HR 80'S. CENTRAL LINE TO RIJ, PATENT AND INFUSING. PIVS INTACT. ARMBOARD TO R WRIST, DRESSING INTACT, NO SIGNS OF OOZING OR HEMATOMA. YOUNG DRAINING TO GRAVITY. TEMP 100.9, MEDICATED PER EMAR AND FAN PLACED. BED LOW AND LOCKED. FAMILY AT THE BEDSIDE.
[2024-07-25] VITALS (38 sets, daily range): BP systolic 88–151; BP diastolic 63–92
[2024-07-25 03:43] LABS: BASOPHILS ABSOLUTE AUTO 0.03 K/mm3 (0.00-0.23); BASOPHILS PERCENT AUTO 0 % (0-2); EOSINOPHILS ABSOLUTE AUTO 0.06 K/mm3 (0.00-0.68); EOSINOPHILS PERCENT AUTO 1 % (0-6); Hematocrit 23.8 % (33.0-51.0); Hemoglobin 8.1 g/dL (11.5-16.0); IMMATURE GRAN PERCENT AUTO 1 % (0-1); LYMPHOCYTES ABSOLUTE AUTO 0.86 K/mm3 (0.84-5.20); LYMPHOCYTES PERCENT AUTO 7 % (21-46); MONOCYTES ABSOLUTE AUTO 0.62 K/mm3 (0.16-1.47); MONOCYTES PERCENT AUTO 5 % (4-13); Mean Corpuscular HGB 30.7 pg (26.0-34.0); Mean Platelet Volume 10.1 fL (9.1-12.4); NEUTROPHILS ABSOLUTE AUTO 11.21 K/mm3 (1.96-9.15); NEUTROPHILS PERCENT AUTO 87 % (41-73); Platelet Count 156 K/mm3 (150-400); RDW Coefficient Variation 13.8 % (11.7-14.2); RDW Standard Deviation 45.1 fL (35.1-46.3); Red Blood Cell Count 2.64 M/mm3 (3.80-5.20); White Blood Cell Count 12.88 K/mm3 (4.00-11.30)
[2024-07-25 03:46] LABS: Mean Corpuscular Volume 90 fL (80-100)
[2024-07-25 04:07] LABS: Albumin, Blood 2.8 g/dL (3.4-5.0); Bilirubin, Total 0.8 mg/dL (0.1-1.0); Bun/Creatinine Ratio 18.2 (12.0-20.0); Calcium, Blood 7.4 mg/dL (8.5-10.1); Creatinine, Blood 1.54 mg/dL (0.40-1.00); Globulin, Blood 2.7 g/dL (2.2-4.0); Magnesium, Blood 2.5 mg/dL (1.6-2.4); Phosphorus, Blood 3.2 mg/dL (2.5-4.9); Potassium, Blood 4.1 mmol/L (3.5-5.5); Total Protein, Blood 5.5 g/dL (6.4-8.2)
--- NOTE | 2024-07-25 05:12 | NUR ---
SHIFT SUMMARY: NO ACUTE CHANGES OVERNIGHT. NEURO REMAINS THE SAME, OPENS EYES TO VERBAL STIMULI, WITHDRAWS TO PAIN. NOT FOLLOWING COMMANDS. EASILY AGGITATED AND ANXIOUS. GIVEN PRN VERSED AND FENTANYL AN ADJUNCT TO SEDATION. VENT SETTINGS UNCHANGED, SPO2 HIGH 90'S. MAP >65, SR HR 70'S. PROPOFOL REMAINS AT 40 MCG/KG/MIN. CENTRAL LINE TO RIJ PATENT AND INFUSING. YOUNG DRAINING TO GRAVITY. NO BM. TEMP RANGING FROM 100-100.9. FAMILY AT BEDSIDE, UPDATE TO PLAN OF CARE. BED LOW AND LOCKED. OGT CLAMPED. MINIMAL SECRETIONS NOTED FROM MOUTH AND ET TUBE.
[2024-07-25] MEDS ORDERED: Metoprolol Tartrate 25 MG Tab PT SCH (09:00)
[2024-07-25] MEDS ORDERED: Ipratropium/Albuterol SulF 2.5-0.5MG/3 ML Amp INH SCH (12:00)
--- NOTE | 2024-07-25 12:30 | NUR ---
REASSESSMENT PT HAD HER WEAN THIS MORNING AND BECAME VERY AGITATED WITH SEDATION OFF, ESPECIALLY WHILE SHE WAS GETTING CLEANED UP. ULTIMATELY, SEDATION HAD TO BE RESTARTED IN ORDER TO GET PT CLEANED UP. PRECEDEX WAS THEN STARTED AND PROPFOL TITRATED DOWN. PT WAS ABLE TO WAKE UP THEN AND BE MORE CALM. SHE WAS ABLE TO FOLLOW COMMANDS TO GIVE THUMBS UP WITH EACH HAND. SPOKE WITH RT AND DR. HALE AND HE GAVE THE ORDER TO EXTUBATE. PT EXTUBATED AT 1218 TO 47/NC. PT WAS AGITATED AND BREATHING RAPIDLY WITH SPO2 88%. NC TURNED UP TO 6L AND PT'S WAS ABLE TO HELP PT RELAX AND SLOW HER BREATHING. OXYGEN WAS THEN ABLE TO BE TITRATED DOWN TO 2L/NC WITH SPO2 97%. PT IS NOW RESTING COMFORTABLY, FAMILY AT BEDSIDE. LUNGS ARE A LITTLE COARSE. SR. YOUNG WITH CLEAR YELOOW/GREEN URINE.
[2024-07-25] MEDS ORDERED: Ketorolac Tromethamine 15mg Vial IV PRN (13:50)
[2024-07-25 14:46] LABS: Hematocrit 24.2 % (33.0-51.0); Hemoglobin 8.2 g/dL (11.5-16.0)
--- NOTE | 2024-07-25 17:26 | NUR ---
SHIFT SUMMARY PT WAS EXTUBATED TODAY AND HAS BEEN ON RA WHEN AWAKE OR 1-2L/NC WHEN SLEEPING BECAUSE SHE WAS DROPPING BELOW 90%. WHEN SHE DID DROP BELOW 90S, ATTEMPTED TO SYSTEMS ARCHITECTURE ANALYST PT IN DEEP BREATHING AND COUGHING, BUT PT REFUSED. WHEN ASKED TO DO MOST CARES, PT SHAKES HER HEAD NO. SHE SOMETIMES ASKS WHY, BUT LOOKS CONFUSED WHEN IT IS EXPLAINED. HER RESPONSES ARE OFTEN DELAYED. SHE SPEAKS VERY LITTLE AND HAS MOSTLY BEEN RESTING WITH HER EYES CLOSED. HER LUNGS ARE COARSE. SR, BP STABLE WITH MAP 92. SHE HAS THE YOUNG STILL WITH YELLOW URINE. SKIN CONDITION IS UNCHANGED. MANY FAMILY AND FRIENDS HAVE BEEN AT THE BEDSIDE THROUGHOUT THE DAY. PT'S AND PARENTS HAVE BEEN UPDATED THOUGHOUT THE SHIFT.
[2024-07-25] MEDS ORDERED: Metoclopramide HCl 5MG / ML 2ML Vial IV PRN (18:30)
[2024-07-26] VITALS (24 sets, daily range): BP systolic 107–146; BP diastolic 64–103
--- NOTE | 2024-07-26 06:35 | NUR ---
SHIFT SUMMARY: Pt has been alert to self and following some commands throughout shift. She is agitated and resistant to anything physically uncomfortable. Family and friends stayed with the patient through the night and help reorient her. She remains confused about the situation. She is motivated to get up and moved periodically. She gets up to use the commode and would like to start to walk. Pt complained of pain from peripheral IVs, left ac had been pulled nearly all the way out, they were both removed. Leggett catheter still in place and draining to gravity. Central line patent. Pt sinus rhythm on spanish teacher, MAP >65. Pt on 1lpm nasal cannula through most of the shift. She desats with exertion. Pt has occasional cough, but not on demand, very painful. Lungs are coarse sounding. Abdomen soft and nontender.
[2024-07-26 08:01] LABS: BASOPHILS ABSOLUTE AUTO 0.02 K/mm3 (0.00-0.23); BASOPHILS PERCENT AUTO 0 % (0-2); EOSINOPHILS ABSOLUTE AUTO 0.01 K/mm3 (0.00-0.68); EOSINOPHILS PERCENT AUTO 0 % (0-6); Hematocrit 22.2 % (33.0-51.0); Hemoglobin 7.5 g/dL (11.5-16.0); IMMATURE GRAN ABSOLUTE AUTO 0.05 K/mm3 (0.00-0.10); IMMATURE GRAN PERCENT AUTO 1 % (0-1); LYMPHOCYTES PERCENT AUTO 6 % (21-46); MONOCYTES ABSOLUTE AUTO 0.44 K/mm3 (0.16-1.47); MONOCYTES PERCENT AUTO 5 % (4-13); Mean Corpuscular HGB 30.5 pg (26.0-34.0); Mean Corpuscular HGB Conc 33.8 g/dL (31.5-36.5); Mean Corpuscular Volume 90 fL (80-100); Mean Platelet Volume 10.2 fL (9.1-12.4); NEUTROPHILS ABSOLUTE AUTO 8.61 K/mm3 (1.96-9.15); NEUTROPHILS PERCENT AUTO 89 % (41-73); Platelet Count 138 K/mm3 (150-400); RDW Coefficient Variation 13.3 % (11.7-14.2); RDW Standard Deviation 44.3 fL (35.1-46.3); Red Blood Cell Count 2.46 M/mm3 (3.80-5.20); White Blood Cell Count 9.73 K/mm3 (4.00-11.30)
[2024-07-26 08:17] LABS: Bilirubin, Total 0.8 mg/dL (0.1-1.0); Bun/Creatinine Ratio 19.1 (12.0-20.0); Calcium, Blood 8.2 mg/dL (8.5-10.1); Creatinine, Blood 1.15 mg/dL (0.40-1.00); Potassium, Blood 3.6 mmol/L (3.5-5.5)
--- NOTE | 2024-07-26 10:14 | NUR ---
0700 ASSUMED CARE OF PATIENT PT IN BED THIS AM RESTING WITH FAMILY AT BEDSIDE. PT HAS A CENTRAL LINE TO RIGHT IJ. PT HAS YOUNG IN PLACE. PT ABLE TO MAEW WITH ENCOURAGEMENT HOWEVER IS NO RESISTANT TO FOLLOWING STAFF'S DIRECTION. PT AT TIMES NOT ABLE TO UNDERSTAND WHAT IS BEING ASKED OF HER LIKE LIFT HER TOES TO HER FACE. SHE DID DO IT HOWEVER AFTER HER SHOWED HER WHAT TO DO. PT WAS ASKED IF SHE KNEW PEOPLE IN THE ROOM. PT STATED HER WAS HER BROTHER NOT RECOGNIZING SHE HAD A HUSBND. PT STATED MOM AND DAD WAS MOM AND DAD NOT USING ANY NAMES. SHE DID STATE HER BROTHERS NAME TO SAY HER WAS HER BROTHER. PT DOES NOT REMEMBER A CARDIAC ARREST OCCURED TO HER OR THAT SHE HAS PNEUMONIA. SHE IS FREQ. BEING REMINDED OF HER SURROUNDINGS AND PEOPLE IN HER LIFE. SHE WAS ABLE TO STATE HER DAY OF AND MONTH OF BUT NOT YEAR. SHE WAS ABLE TO GET UP TO BSC TO VOID AFTER YOUNG WAS DC'D AT 08-- PT ALSO HAVING LOOSE STOOLS DARK BROWN IN COLOR. PT NAUSEA'S GETTING ANTIEMETICS. PT /OT ORDERED. DIET TO BE ADVANCE. FAMILY VERY SUPPORTIVE
[2024-07-26] MEDS ORDERED: TraMADol HCl 50 MG Tab PO PRN ×2 (12:20→16:50)
[2024-07-26] MEDS ORDERED: CefTRIAXone Sodium 1,000 MG in NS 100 ML IV SCH (13:00)
[2024-07-26] MEDS ORDERED: Acetaminophen 325 MG TABLET PO PRN (15:35)
--- NOTE | 2024-07-26 17:41 | NUR ---
END OF SHIFT NOTE PT IS AWAKE MOST OF DAY. RESTED WHILE UP IN CHAIR ABOUT 1400 TODAY WITH FAMILY AROUND HER. PT STILL VERY CONFUSED ABOUT THIS PLACE AND WHAT SHE IS SUPPOSE TO BE DOING HERE. SHE ASK WHY A LOT BUT DOES NOT REALLY COMPREHEND THE MEANING OF ANY OF THE ANSWER'S. PT RECEIVED A UNIT OF BLOOD TODAY. PT HAS HAD HER ANTIBIOTICS CHANGED TODAY WELL. HER YOUNG CATHETER AND CENTERAL LINE WERE DISCONTINUED AND A POWERGLIDE WAS PLACED TO HER LEFT UPPER ARM. PT HAS VOIDED TWICE AND HAD LOOSE STOOLS TWICE TODAY. SHE IS TRYING TO EAT FOOD FULL LIQUID FOR RIGHT NOW D/T HER NAUSEA SHE HAS HAD THROUGHOUT THE DAY. SHE IS ONLY EATTING BITES OF PUDDING OR ICE CREAM OR SIPS OF WATER AND SPRITE. SHE IS LEARNING NEW FLAVORS AGAIN AND FINDING WHAT SHE LIKES AND WILL EAT OR TRY IS A CHALLENGE D/T OUR OPTIONS HERE. PT HAS HAD PAIN MEDICATION THROUGHOUT THE DAY TO HELP HER DISCOMFORTS. SHE DOES NOT SAY SHE IS IN PAIN BUT SHE WILL SAY " OUCH, I HURT" AND BE RESTLESS. FAMILY HAS BEEN VERY ENCOUURAGING TO THE PATIENTS TO MOTIVATE HER TO DO ACTIVITIES WHERE SHE IS RESISTENT STAFF. RHYTHM REMAINS SINUS RATE IN THE 60-70'S AND VS STABLE AT THIS TIME.
[2024-07-26] MEDS ORDERED: Lactobacil 2-S.Thermo-Bifido 1 1 Cap PO SCH (21:00)
[2024-07-26] MEDS ORDERED: Metoprolol Succinate 25 MG TABCR PO SCH (21:00)
[2024-07-26] MEDS ORDERED: Losartan Potassium 25 MG Tab PO SCH (21:00)
[2024-07-26] MEDS ORDERED: Mag Hydrox/AL Hydrox/Simeth 30 ML UDC PO PRN (22:35)
[2024-07-26 23:20] LABS: Hematocrit 25.7 % (33.0-51.0); Hemoglobin 8.9 g/dL (11.5-16.0); Mean Corpuscular HGB 30.6 pg (26.0-34.0); Mean Corpuscular HGB Conc 34.6 g/dL (31.5-36.5); Mean Corpuscular Volume 88 fL (80-100); Mean Platelet Volume 10.3 fL (9.1-12.4); Platelet Count 157 K/mm3 (150-400); RDW Coefficient Variation 13.2 % (11.7-14.2); RDW Standard Deviation 42.9 fL (35.1-46.3); Red Blood Cell Count 2.91 M/mm3 (3.80-5.20); White Blood Cell Count 8.91 K/mm3 (4.00-11.30)
[2024-07-26 23:56] LABS: Bun/Creatinine Ratio 23.2 (12.0-20.0); Calcium, Blood 8.4 mg/dL (8.5-10.1); Creatinine, Blood 1.12 mg/dL (0.40-1.00); Potassium, Blood 3.5 mmol/L (3.5-5.5)
[2024-07-27] VITALS (8 sets, daily range): BP systolic 123–148; BP diastolic 88–101
[2024-07-27 03:35] LABS: BASOPHILS ABSOLUTE AUTO 0.02 K/mm3 (0.00-0.23); BASOPHILS PERCENT AUTO 0 % (0-2); EOSINOPHILS ABSOLUTE AUTO 0.07 K/mm3 (0.00-0.68); EOSINOPHILS PERCENT AUTO 1 % (0-6); Hematocrit 26.2 % (33.0-51.0); Hemoglobin 9.1 g/dL (11.5-16.0); IMMATURE GRAN ABSOLUTE AUTO 0.06 K/mm3 (0.00-0.10); IMMATURE GRAN PERCENT AUTO 1 % (0-1); LYMPHOCYTES ABSOLUTE AUTO 1.03 K/mm3 (0.84-5.20); LYMPHOCYTES PERCENT AUTO 11 % (21-46); MONOCYTES ABSOLUTE AUTO 0.59 K/mm3 (0.16-1.47); MONOCYTES PERCENT AUTO 6 % (4-13); Mean Corpuscular HGB 30.5 pg (26.0-34.0); Mean Corpuscular HGB Conc 34.7 g/dL (31.5-36.5); Mean Corpuscular Volume 88 fL (80-100); NEUTROPHILS ABSOLUTE AUTO 7.72 K/mm3 (1.96-9.15); NEUTROPHILS PERCENT AUTO 81 % (41-73); Platelet Count 170 K/mm3 (150-400); RDW Coefficient Variation 13.2 % (11.7-14.2); RDW Standard Deviation 42.6 fL (35.1-46.3); Red Blood Cell Count 2.98 M/mm3 (3.80-5.20); White Blood Cell Count 9.49 K/mm3 (4.00-11.30)
[2024-07-27 04:00] LABS: Albumin, Blood 3.2 g/dL (3.4-5.0); Bilirubin, Total 0.7 mg/dL (0.1-1.0); Bun/Creatinine Ratio 25.2 (12.0-20.0); Calcium, Blood 8.4 mg/dL (8.5-10.1); Creatinine, Blood 1.15 mg/dL (0.40-1.00); Globulin, Blood 3.2 g/dL (2.2-4.0); Potassium, Blood 3.6 mmol/L (3.5-5.5); Total Protein, Blood 6.4 g/dL (6.4-8.2)
--- NOTE | 2024-07-27 06:16 | NUR ---
SHIFT SUMMARY: Pt in alert in room. She is able to stand and walk with standby assistance and has been using the walker. She uses the bedside commode. Scant blood noted in her attends and small blood clot in her urine. Pt has had complaints of abdominal pain helped with Maalox. She continues to have nausea periodically throughout shift. She still has an altered mentation, though she is communicating more and recognizing visitors more. She is still very repetetive and says she doesn't understand what's going on. However she is cooperatie with care and follows commands. Complaint of back and chest pain still. Her cough is stronger and productive. She is on 3lpm oxygen with SPO2 >95%. Patient has been in a sinus rhythm, bradycardic at rest but asymptomatic. She is taking off her electrodes often. MAP >65.
--- NOTE | 2024-07-27 07:15 | NUR ---
ASSUMPTION OF CARE: ASSUMED CARE OF PATIENT. PATIENT SITTING WITH FAMILY AT BEDSIDE. PATIENT MILDLY AGITATED. PATIENT ASKING THE SAME QUESTIONS WELL ASKING, "WHY?", "WHAT'S GOING ON HERE?" REPEATEDLY. PATIENT'S BLOOD PRESSURES ARE STABLE. SPO2 >92% ON ROOM AIR. NO CHANGES TO TELEMETRY AT THIS TIME. HR IN THE 50S-60S. PATIENT ALERT AND ORIENTED TO SELF. PATIENT FOLLOWING DIRECTIONS.
[2024-07-27] MEDS ORDERED: Sacubitril/Valsartan 24 MG-26 MG Tab PO SCH (09:00)
[2024-07-27] MEDS ORDERED: Empagliflozin 10 MG TAB PO SCH (09:00)
[2024-07-27 10:47] LABS: CHOL/HDL RATIO 3.1; Cholesterol 108 mg/dL (50-200); HDL Cholesterol 35 mg/dL (>39); LDL/HDL RATIO 1.2; Low Density Lipoprotein Chol 41 mg/dL (0-110); Triglycerides 162 mg/dL (30-160); Very Low Density Lipoprot Chol 32 mg/dL (6-32)
[2024-07-27] MEDS ORDERED: Simethicone 80 MG Chew PO PRN (12:00)
--- NOTE | 2024-07-27 15:47 | NUR ---
AFTERNOON ASSESSMENT AND AGITATION: EARLY THIS AFTERNOON, PATIENT PACING IN THE ROOM AND BECOMING AGITATED. DR. RUBI NOTIFIED AND AT BEDSIDE. DISCUSSED PLAN OF CARE AND NEED TO AVOID MIND ALTERING MEDICATIONS. DR. RUBI REPORTED HE WOULD ADD A SLEEP AIDE RELATED TO HER LACK OF SLEEP. CIVIL GEOTECHNICAL ENGINEER AT BEDSIDE TO DISCUSS DIETARY PREFERENCES WITH THE FAMILY. HE RECOMMENDED EXPANDING HER DIETARY OPTIONS. DISCUSSED WITH DR. RUBI AND DIET ADVANCED TO REGULAR CONSISTENCY. ALSO DISCUSSED WITH DR. RUBI PATIENT'S VAGINAL BLEEDING. IT IS CONSISTENT WITH MENSTRUATION. FAMILY REPORTS SHE LAST HAD A PERIOD TWO WEEKS AGO. BLEEDING IS MODERATE. SMALL CLOTS NOTED IN TOILET.
[2024-07-27] MEDS ORDERED: Melatonin 3 MG Tab PO PRN ×2 (17:05→21:20)
[2024-07-27] MEDS ORDERED: Zolpidem Tartrate 5 MG Tab PO PRN (17:05)
--- NOTE | 2024-07-27 17:15 | NUR ---
O2 LEVELS: PATIENT RESTING IN BED. SPO2 WAS 90-92%. PLACED BACK ON 3L TO MAINTAIN AN SPO2 >94%. PATIENT CONTINUES TO HAVE INTERMITTANT COUGHING.
--- NOTE | 2024-07-27 18:03 | NUR ---
SHIFT SUMMARY: NEURO: PATIENT ALERT AND ORIENTED TO SELF AND SOME FAMILY. PATIENT FOLLOWING DIRECTIONS. PATIENT REPEATS QUESTIONS AND STATEMENTS, SUCH "WHY?" AND "I DON'T UNDERSTAND". PATIENT MOVES ALL EXTREMITIES EQUALLY AND WITHOUT DIFFICULTY. PATIENT STEADY, BUT WEAK ON HER FEET. RESPIRATORY: WHEN UP IN THE CHAIR, PATIENT STABLE ON ROOM AIR WITH SPO2 >94%. WHEN RESTING IN BED, PATIENT REQUIRES 3L VIA NC TO MAINTAIN SPO2 >94%. PATIENT DENIES SHORTNESS OF BREATH OR DIFFICULTY BREATHING. NO RESPIRATORY DISTRESS NOTED. PATIENT COUGHS AT TIMES. PATIENT VERY PAINFUL WITH COUGH. PATIENT PAINFUL WITH ATTEMPTING INCENTIVE SPIROMETER. LUNG SOUNDS DIMINISHED THROUGHOUT. CARDIAC: PATIENT VITALS STABLE WITH MAPS >65. HR IN THE MID 50S-60S. PULSES PRESENT AND STRONG. GI/: PATIENT VOIDING WITHOUT DIFFICULTY. NO BOWEL MOVEMENT TODAY. PATIENT HAS TAKEN IN ADEQUATE PO LIQUIDS. PATIENT HAS HAD MINIMAL TO ZERO FOOD INTAKE. PATIENT VISITED BY DIETARY (SEE AFTERNOON ASSESSMENT NOTE). FAMILY HAS BEEN RECEPTIVE TO SUGGESTIONS AND BRINGING IN FOOD THAT SHE USUALLY LIKES. REPRODUCTIVE: PATIENT HAS EXPERIENCED VAGINAL BLEEDING TODAY. AT THE END OF THE SHIFT, THE REPORTED THAT HER MENSTRUATION IS IRREGULAR AT BASELINE. NEW ORDER FOR H AND H THIS EVENING. PSYCHSOCIAL: PATIENT ANXIOUS AND AGITATED AT TIMES. FAMILY HAS BEEN RECEPTIVE TO MAINTAINING A LOW STIMULUS ENVIRONMENT. THEY HAVE AGREED TO HAVING ONLY 1-2 VISITORS AT A TIME. WHEN IN THE ROOM, THEY ARE WORKING TO KEEP CONVERSATIONS AT A MINIMUM.
[2024-07-27 20:46] LABS: Hematocrit 26.1 % (33.0-51.0); Hemoglobin 9.3 g/dL (11.5-16.0)
--- NOTE | 2024-07-27 21:00 | NUR ---
ASSUME CARE: PT ALERT AND ORIENTED TO SELF ONLY. PT FAMILY IN ROOM ABLE TO REORIENT HER AND GO THROUGH PICTURES OF HER FAMILY. PT OCCASIONALLY ABLE TO RECOGNIZE HER FAMILY. SBP 120s, MAP>65. HR 60s-70, PT DENIES CHEST PAIN. SPO2 90% ON RA, DENIES SOB. PT ABLE TO AMBULATE WITHOUT ASSISTANCE, BUT NEEDS FAMILY OR NURSE ASSIST FOR CONFUSION. CALL PLACED TO HOSPITALIST KRISTIE IN REGARDS TO GIVING AMBIEN FOR SLEEP AND CONCERN FOR INCREASED CONFUSION. ORDER GIVEN TO INCREASE MELATONIN AND TRY THIS FIRST BEFORE GIVING AMBIEN. PT FAMILY WILL BE STAYING THE NIGHT.
[2024-07-28 04:41] LABS: BASOPHILS ABSOLUTE AUTO 0.03 K/mm3 (0.00-0.23); BASOPHILS PERCENT AUTO 0 % (0-2); EOSINOPHILS ABSOLUTE AUTO 0.19 K/mm3 (0.00-0.68); EOSINOPHILS PERCENT AUTO 2 % (0-6); Hematocrit 25.8 % (33.0-51.0); Hemoglobin 9.2 g/dL (11.5-16.0); IMMATURE GRAN ABSOLUTE AUTO 0.04 K/mm3 (0.00-0.10); IMMATURE GRAN PERCENT AUTO 1 % (0-1); LYMPHOCYTES ABSOLUTE AUTO 1.23 K/mm3 (0.84-5.20); LYMPHOCYTES PERCENT AUTO 15 % (21-46); MONOCYTES ABSOLUTE AUTO 0.66 K/mm3 (0.16-1.47); MONOCYTES PERCENT AUTO 8 % (4-13); Mean Corpuscular HGB 30.8 pg (26.0-34.0); Mean Corpuscular HGB Conc 35.7 g/dL (31.5-36.5); Mean Corpuscular Volume 86 fL (80-100); Mean Platelet Volume 10.1 fL (9.1-12.4); NEUTROPHILS ABSOLUTE AUTO 6.09 K/mm3 (1.96-9.15); NEUTROPHILS PERCENT AUTO 74 % (41-73); Platelet Count 191 K/mm3 (150-400); RDW Coefficient Variation 12.5 % (11.7-14.2); RDW Standard Deviation 38.9 fL (35.1-46.3); Red Blood Cell Count 2.99 M/mm3 (3.80-5.20); White Blood Cell Count 8.24 K/mm3 (4.00-11.30)
[2024-07-28 04:53] LABS: Albumin, Blood 2.8 g/dL (3.4-5.0); Albumin/Globulin Ratio 0.9 (0.8-1.8); Bilirubin, Total 0.7 mg/dL (0.1-1.0); Bun/Creatinine Ratio 29.9 (12.0-20.0); Calcium, Blood 8.4 mg/dL (8.5-10.1); Creatinine, Blood 0.97 mg/dL (0.40-1.00); Globulin, Blood 3.2 g/dL (2.2-4.0); Potassium, Blood 3.4 mmol/L (3.5-5.5)
--- NOTE | 2024-07-28 05:51 | NUR ---
SHIFT SUMMARY: PT ALERT AND ORIENTED TO SELF T/O THE NIGHT. PT REORIENTED T/O THE NIGHT WITH CONSTANT CONFUSION, ASKING WHY FOR EVERYTHING MULTIPLE TIMES. FAMILY HAS REMAINED AT BEDSIDE AND ARE VERY HELPFUL W/REORIENTATION AND CARE. PT HAS WANDERED AROUND IN ROOM AND OUTSIDE OF ROOM W/FAMILY ASSISTANCE. PT COMPLAINS OF GENERALIZED PAIN, MEDICATED PER EMAR. VSS, SPO2>94% W/SLEEP ON 3L NC. PT TOLERATED MELATONIN AND AMBIEN LAST NIGHT AND GOT SOME SLEEP. PT CONTINENT OF URINE AND ABLE TO USE THE BATHROOM W/ MINIMAL ASSISTANCE. WILL REPORT TO ONCOMING RN.
[2024-07-28] MEDS ORDERED: Potassium Chloride 20 MEQ/15 ML UDC PO ONE (07:12)
[2024-07-28] MEDS ORDERED: Potassium Chloride 10 Meq Tablet SA PO ONE (08:30)
[2024-07-28 09:25] VITALS: BP 124/90
--- NOTE | 2024-07-28 09:30 | NUR ---
ASSUMED CARE REPORT FROM BOBBY RN AT 0700. PT ASLEEP MOST OF MORNING. WOKE AROUND 0900. PT ALERT TO SELF, FAMILY, AND PLACE, UNSURE OF DATE, BECOMES IRRITABLE AND PARANOID ABOUT QUESTIONS OR SIDE CONVERSATIONS. FOLLOWS DIRECTIONS, REDIRECTABLE AT THIS TIME. REPORTS ADEQUATE SLEEP LAST NOC. C/O CHEST WALL PAIN, 05/27, MEDICATED ORDERED AND ENCOURAGED SPLINTING c RESP AND COUGHING. LUNGS CLEAR, ON RA. NON PRODUCTIVE COUGH. VSS. PT HAS POOR APPETITE, ENCOURAGE FOOD SELECTION FROM MENU. TOOK PO MEDS s DIFFICULT. WILL CONTINUE PLAN OF CARE.
[2024-07-28 15:44] VITALS: BP 138/90
--- NOTE | 2024-07-28 16:49 | NUR ---
TRANSFER TO PCU/SHIFT SUMMARY NO ACUTE CHANGES THIS SHIFT. PT CONTINUES TO BE ORIENTED TO SELF AND FAMILY. IRRITABLE c QUESTIONS AND PARANOID. ABLE TO REDIRECT. FAMILY AT BEDSIDE ENTIRE SHIFT AND HELPFUL c CARE. VSS, ON RA. POOR APPETITE. GOOD LIQUID INTAKE. LEAH COBB COMPLETED THIS SHIFT. REPORT TO PASHA MCDONNELL. PT TRANSFERRED TO PCU 8 c ALL BELONGINGS.
--- NOTE | 2024-07-28 18:15 | NUR ---
TRANSFER TO PCU 8 / SHIFT SUMMARY PT A&O TO SELF AND FAMILY AT TIMES. PT IS PARANOID/DEFENSIVE AND THINKS THAT SHE ISN'T A PT. PT IND IN ROOM, FAMILY WITH THEM AT ALL TIMES. VSS, REFUSED TELE, RA WITH SpO2> 92%. DENIES CP/PRESSURE/SOB. FAMILY AT BEDSIDE. NO OTHER EVENTS, WILL REPORT TO ONCOMING RN.
[2024-07-28] MEDS ORDERED: LORazepam 0.5 MG Tab PO ONE (20:15)
[2024-07-28 20:46] VITALS: BP 131/85
[2024-07-29 04:15] VITALS: BP 138/84
--- NOTE | 2024-07-29 05:45 | NUR ---
NOC SHIFT SUMMARY PT ORIENTED TO SELF AND PERSON ONLY, REPEATS QUESTIONS AND DISTRUSTFUL OF STAFF/SITUATION. HEAD CT COMPLETED LAST NIGHT AFTER DISCUSSED WITH RESIDENT SOLIS LAKE MD REGARDING PT ANXIETY AND CONCERNS WITH ABILITY TO TOLERATE SCAN. 0.5 MG PO ATIVAN ORDERED X1, PT TOLERATED WELL. FAMILY WITH PT OVERNIGHT. SLEPT INTERMITTENTLY. NO TELE, PAIN TO CHEST AND BACK FROM CPR/SHOCKS. NONRADIATING. PRNS GIVEN. SEE EMAR FOR DETAILS. PLAN FOR POSSIBLE STATUS CHANGE TODAY
[2024-07-29] MEDS ORDERED: Potassium Chl 20MEQ/Water100ML 100 ML IV SCH (05:50)
--- NOTE | 2024-07-29 06:40 | NUR ---
0559 - ATTEMPTED TO CALL DR. SOLIS LAKE DUE TO K+ ORDERED BUT NO AM LABS DRAWN 06 - CALLED AGAIN TO PROVIDER, SPOKE WITH SOLIS LAKE MD AND AND PLAN TO DC K+ REPLACEMENT
[2024-07-29 08:57] VITALS: BP 135/83
[2024-07-29] MEDS ORDERED: Amoxicillin/Clavulanate K 875 MG Tab PO SCH (09:00)
[2024-07-29] MEDS ORDERED: TraZODone HCl 50 MG Tab PO PRN (12:00)
[2024-07-29] MEDS ORDERED: LORazepam 2 MG/ML 1ML Injection IV PRN (12:00)
[2024-07-29 14:55] VITALS: BP 136/85
--- NOTE | 2024-07-29 18:34 | NUR ---
SHIFT SUMMARY PT A&O TO SELF AND FAMILY AT TIMES. PT IS PARANOID/DEFENSIVE AND THINKS THAT SHE ISN'T A PT. PT IND IN ROOM, FAMILY WITH THEM AT ALL TIMES. AMBULATING ARPUND UNIT WITH FAMILY. VSS, REFUSED TELE, RA WITH SpO2> 92%. DENIES CP/PRESSURE/SOB. FAMILY AT BEDSIDE. NO OTHER EVENTS, WILL REPORT TO ONCOMING RN.
--- NOTE | 2024-07-29 18:42 | NUR ---
ARRIVAL TO PCU 1 / SHIFT SUMMARY PT ARRIVED TO PCU 1 AT APPROXIMATELY 1330. PT SLID OVER FROM ER GURNEY TO HOSPITAL BED BY 3 CLINICAL STAFF MEMBERS. PT MINIMALLY RESPONDING TO PAIN, MOANING CONSTANTLY AND UNABLE TO ANSWER QUESTIONS. MEDICATED FROM PAIN PER EMAR. PT ARRIVED ON 11L VIA VENTI MASK, SpO2 MID 80s, TITRATED UP TO 15L FOR SpO2> 92%. UNABLE TO DENY OR CONFIRM SOB, DOES NOT APPEAR TO BE IN RESPIRATORY DISTRESS. BP STABLE, AFIB 60-100's WITH PAUSES, UNABLE TO DENY OR CONFIRM CP/PRESSURE. YOUNG CATH PLACED IN ER, PATENT, DRAINING TO GRAVITY. DR TO BEDSIDE, PT MINIMALLY RESPONSIVE TO VERBAL STIMULI. ABLE TO TITRATE PT DOWN TO 3L VIA NC WITH SpO2> 92%. PT VERY RESTLESS AND TRYING TO GET OUT OF BED AND NOT FOLLOWING COMMANDS. PT NOT OPENING EYES OR TALKING TO STAFF. PT STATING SHE NEEDS TO GO TO BATHROOM, PLACED ON BEDPAN AND NOT ABLE TO FOLLOW DIRECTION TO US BED BRITO. 3 CLINICAL STAFF MEMBERS TO ASSIST PT TO BSC WITH GB AND FWW. PT JUST PASSED DMITRY, NO BM. PT RESTING MORE COMFORTABLE AFTER GETTING BACK TO BED. NO OTHER EVENTS, WILL REPORT TO ONCOMING RN.
[2024-07-29 19:54] VITALS: BP 126/89
[2024-07-29] MEDS ORDERED: HyDROXyzine HCl 10 MG Tab PO PRN (22:30)
--- NOTE | 2024-07-30 05:40 | NUR ---
SHIFT SUMMARY ASSUMED CARE OF PT AT 1900. PT A&O1 TO SELF, CONFUSED TO SITUATION, TIME AND PLACE. PT ALLOWED VS TO BE TAKEN ONCE DURING SHIFT WITHOUT GETTING AGITATED. T/O THE NIGHT PT WOULD BECOME ANXIOUS AND WOULD WANT TO WALK OUT OF ROOM AND INTO OTHER PT'S ROOM OR NURSING STATION. PT REDIRECTED BY STAFF AND FAMILY AND PT WOULD BECOME DEFENSIVE AND ASK WHY AND STATES SHE DIDN'T UNDERSTAND. PT KEPT ATTEMPTING TO REMOVE POWERGLIDE IV AND STATED SHE NO LONGER WANTED IT; PT DIDNOT REPORT PAIN FROM IT AND IV FLUSHED AND PULLED BACK WITH NO ISSUES. WRAPPED WITH COBAN WHICH PT LATER REMOVED. CALLED MD FOR PRN ANXIETY MEDS, GAVE TO PT BUT PT REFUSED TO TAKE RIGHT AWAY, PT WANTED TO HOLD ON TO MEDICATION FOR LATER, EDUCATED PT AND AFTER SOME TIME PACING AND TELLING FAMILY SHE WOULD TAKE IT AND JUST LEAVING IT TO THE SIDE, PT FINALLY TOOK MED AFTER SOLUTION MAKER SPOKE TO PT. PT NOW SLEEPING, EYES CLOSED, CHEST RISING. LABS AND VS TO BE TAKEN ONCE PT AWAKENS TO REDUCE AGITATION. PT'S BED IN LOWEST POSITION, CALL LIGHT WITHIN REACH AND FAMILY AT BEDSIDE.
[2024-07-30 09:25] VITALS: BP 139/78
[2024-07-30 16:35] VITALS: BP 121/89
--- NOTE | 2024-07-30 17:58 | NUR ---
SHIFT SUMMARY PT A&O TO SELF AND FAMILY AT TIMES. PT IS PARANOID/DEFENSIVE AND THINKS THAT SHE ISN'T A PT. PT IND IN ROOM, FAMILY WITH THEM AT ALL TIMES. AMBULATING ARPUND UNIT WITH FAMILY. VSS, REFUSED TELE, RA WITH SpO2> 92%. DENIES CP/PRESSURE/SOB. FAMILY AT BEDSIDE. PT HAD A MUCH MORE CALM AND RESTFUL DAY COMPARED TO YESTERDAY. NO OTHER EVENTS, WILL REPORT TO ONCOMING RN.
[2024-07-30 20:34] VITALS: BP 122/77
[2024-07-30] MEDS ORDERED: TraZODone HCl 100 MG Tab PO SCH (21:00)
--- NOTE | 2024-07-30 21:37 | NUR ---
ASSUMPTION OF CARE AFTER RECEIVING REPORT FROM NEIDA MCDONNELL, THIS RN ASSUMED CARE AT APPROX 1915. PATIENT ALERT AND ORIENTED TO SELF ONLY. DOES RECOGNIZE AND OR REMEMBER FAMILY MEMBERS AT TIMES. PATIENT DOES EXPERIENCE PARANOIA, DEFENSIVENESS. QUESTIONS EVERY ACTION TAKEN OR QUESTION ASKED DURING ASSESSMENT AND EVENING MEDICATION ADMINISTRATION. COOPERATIVE WITH CARE. AT BEDSIDE ASSISTING WITH CARE. VSS. ON ROOM AIR, SATs >90%. RR EVEN, UNLABORED. AMBULATES IN ROOM AND AROUND UNIT WITH FAMILY. CALL LIGHT IN REACH.
--- NOTE | 2024-07-31 05:28 | NUR ---
SHIFT SUMMARY NO ACUTE EVENTS OVERNIGHT. REDUCED STIMULI T/O NIGHT TO PROMOTE SLEEP AND DECREASE ANXIETY, PARANOIA - FAMILY AT BEDSIDE. REMAINS ALERT AND ORIENTED TO SELF - DOES RECOGNIZE AND RESPOND WELL TO FAMILY. ANSWERS MOST QUESTIONS OR STATEMENTS FROM STAFF WITH "BUT WHY?" UNABLE TO OBTAIN MORNING VS - PATIENT REFUSING, BECOMING MORE ANXIOUS, PARANOID WITH CONTINUED ATTEMPTS AND EDUCATION. LAST VS STABLE. UP IN ROOM WITH FAMILY SUPERVISION AND ASSISTANCE. CALL LIGHT IN REACH. WILL CONTINUE TO MONITOR AND REPORT TO ONCOMING RN.
[2024-07-31] MEDS ORDERED: Eplerenone 25 MG Tab PO SCH (09:00)
[2024-07-31 09:21] VITALS: BP 131/90
--- NOTE | 2024-07-31 10:51 | NUR ---
UPON SHIFT START PATIENT SLEEPING WITH AT BEDSIDE. UPON WAKING VITALS, AM ASSESSMENT AND MEDS COMPLETED. MEDICATED FOR RIB PAIN PER EMAR. PATIENT CONTINUES TO ASK "WHY" TO ALL QUESTIONS OR DISCUSSION BY THIS RN. OT ASSESSMENT THIS AM. UP WALKING AROUND HALLS WITH STAFF AND FAMILY. LUNGS SOUNDS CLEAR. NO TELE. SBP 130'S. HR 60'S. NO EDEMA NOTED. SKIN BRUISING/CHARLES FROM CPR/SHOCKING/INTUBATION IN FIELD. INTERMIT RIB PAIN. FAMILY PROVIDING FOOD FOR PATIENT THIS AM, REFUSING BREAKFAST TRAY. DENIES NEEDS AT THIS TIME. CALL LIGHT IN REACH. PATIENT AND PARENTS AT BEDSIDE.
[2024-07-31 15:50] VITALS: BP 126/85
[2024-07-31] MEDS ORDERED: Multivitamins 1 Tab PO SCH (15:55)
[2024-07-31] MEDS ORDERED: Thiamine HCl 100 MG Tab PO SCH (15:55)
--- NOTE | 2024-07-31 17:40 | NUR ---
NO ACUTE CHANGES. VITAL SIGNS STABLE. FAMILY REMAINS AT BEDSIDE THROUGHOUT THE SHIFT. PATIENT EATING MEALS BROUGHT IN BY FAMILY. UP TO BATHROOM IND. UP WALKING AROUND UNIT WITH STAFF AND FAMILY. MEDICATED PER EMAR FOR RIB PAIN/SORENESS. CALL LIGHT IN REACH. DENIES NEEDS AT THIS TIME.
[2024-07-31 20:15] VITALS: BP 132/84
--- NOTE | 2024-07-31 20:28 | NUR ---
ASSUMPTION OF CARE AFTER RECEIVING REPORT FROM ANDREE RN, THIS RN ASSUMED CARE AT APPROX 1915. PATIENT ALERT, WATCHING TV IN BED. IS ALERT AND ORIENTED TO SELF. DOES RECOGNIZE HER FAMILY BUT CAN BE UNCLEAR OF HER RELATION TO THEM. AT BEDSIDE. MOSTLY ASKS "WHY" TO ALL QUESTIONS BY THIS RN. DOES DENY RIB PAIN. IS INDEPENDENT IN ROOM WITH FAMILY SUPERVISION. VS STABLE. SBP 130s. RATE 80s. LUNG SOUNDS CLEAR. BRUISING TO LOWER JAW, SKIN AND REDNESS TO CHEST FROM CPR PRIOR TO ADMISSION. DENIES NEEDS AT THIS TIME. PLAN TO REDUCE STIMULI T/O NIGHT PROMOTING GREATER REST, DECREASED PARANOIA. CALL LIGHT IN REACH.
--- NOTE | 2024-08-01 05:18 | NUR ---
SHIFT SUMMARY NO ACUTE CHANGES OVERNIGHT. REDUCED STIMULI T/O NIGHT TO PROMOTE SLEEP AND DECREASE ANXIETY, PARANOIA. AT BEDSIDE. 0400 VS NOT OBTAINED AT REQUEST PATIENT SLEEPING. LAST VS STABLE. MEDICATED PER EMAR FOR RIB PAIN. UP TO BATHROOM INDEPENDENTLY. AMBULATING AROUND UNIT WITH . CALL LIGHT IN REACH. WILL CONTINUE TO MONITOR AND REPORT TO ONCOMING RN.
--- NOTE | 2024-08-01 09:34 | NUR ---
CARE NOTE THIS RN ATTEMPTED TO SEE PT AT APPROX. 0934, THE PT'S LET THIS RN KNOWN THAT IT WAS NOT A GOOD TIME, WILL CONTINUE TO MONITOR AND ASSIST PT AND FAMILY NEEDED.
[2024-08-01 11:11] VITALS: BP 124/88
--- NOTE | 2024-08-01 18:25 | NUR ---
SHIFT SUMMARY THIS RN WAS UNABLE TO COMPLETE A FULL NEURO/ORIENTATION ASSESSMENT BUT PT APPEARED MUCH CONFUSED AND AT TIMES AGITATED BY CARE. HER FAMILY INCLUDING HER HAVE BEEN AT BEDSIDE T/O THE SHIFT AND DIRECT HER CARE. AM VITAL SIGNS WERE STABLE, SPO2 MAINTAINED >95% VIA RA. HER WOULD NOTIFY STAFF IF PT WAS REPORTING PAIN, PLEASE SEE EMAR FOR PAIN MANAGEMENT. PER FAMILY AND DR. RUBI REQUESTS, MINIMAL STIMULI AND INTERRUPTIONS WERE TO BE PROVIDED DURING SHIFT THEREFORE THIS RN AND OTHER STAFF PROVIDED CARE ONLY WHEN HER REQUESTED IT. HER FAMILY ASSISTED PT IN EATING, SHOWERING, AND ENCOURAGING ORAL CARE. SHE CAN AMBULATE INDEPENDENTLY. OCCUPATIONAL THERAPIST SPOKE W/ THIS RN AND ORTHOPEDIC SPECIALIST WELL REGARDING ESTABLISHING ROUTINES.
[2024-08-01 21:30] VITALS: BP 107/75
--- NOTE | 2024-08-01 21:43 | NUR ---
ASSUMPTION OF CARE PT SITTING UP IN BED WATCHING SHOW WITH , SHAWN, AND A FRIEND/FAMILY MEMBER IN THE ROOM. ASSESSMENT NOT PERFORMED IN ENTIRETY DUE TO PATIENT'S CONFUSION AND PARANOIA. PT BREATHING IS UNLABORED. BP STABLE. CARDIAC MES GIVEN. RIB PAIN, PRESUMABLY FROM CPR, TREATED WITH TYLENOL AND TRAMADOL, WITH SOME DECREASE IN PAIN. PT IS AWAITING TRANSFER [facility] FOR [facility]OLOGICAL CARE. PT LEFT IN ROOM WITH CALL LIGHT NEARBY AND FAMILY IN ROOM.
--- NOTE | 2024-08-02 02:24 | NUR ---
UPDATE PT IS RESTING IN ROOM/BED WITH IN THE ROOM. PT HAS ASKED FOR MINIMAL PATIENT CARE ACTIVITY UNTIL SHE IS TRANSFERRED [facility]. PT ASKED ABOUT PAIN MED AVAILABILITY IN CASE PT WAKES UP. PT AND LEFT IN ROOM WITH CALL LIGHT AVAILABLE.
--- NOTE | 2024-08-02 06:21 | NUR ---
SHIFT SUMMARY PT SLEEPING IN ROOM WITH . ALL INTERVENTIONS CEASED IN NAME OF SLEEP AND DECREAED STIMULATION. VITAL SIGNS STABLE AT BEGINNING OF SHIFT. PT IN ROOM WITH AND CALL LIGHT NEARBY.
[2024-08-02 10:10] VITALS: BP 125/90
[2024-08-02 11:25] LABS: BASOPHILS ABSOLUTE AUTO 0.03 K/mm3 (0.00-0.23); BASOPHILS PERCENT AUTO 1 % (0-2); EOSINOPHILS PERCENT AUTO 2 % (0-6); Hematocrit 30.9 % (33.0-51.0); Hemoglobin 10.9 g/dL (11.5-16.0); IMMATURE GRAN ABSOLUTE AUTO 0.03 K/mm3 (0.00-0.10); IMMATURE GRAN PERCENT AUTO 1 % (0-1); LYMPHOCYTES PERCENT AUTO 16 % (21-46); MONOCYTES ABSOLUTE AUTO 0.52 K/mm3 (0.16-1.47); MONOCYTES PERCENT AUTO 8 % (4-13); Mean Corpuscular HGB 30.1 pg (26.0-34.0); Mean Corpuscular HGB Conc 35.3 g/dL (31.5-36.5); Mean Corpuscular Volume 85 fL (80-100); Mean Platelet Volume 8.9 fL (9.1-12.4); NEUTROPHILS ABSOLUTE AUTO 4.79 K/mm3 (1.96-9.15); NEUTROPHILS PERCENT AUTO 74 % (41-73); Platelet Count 370 K/mm3 (150-400); RDW Coefficient Variation 12.7 % (11.7-14.2); RDW Standard Deviation 38.3 fL (35.1-46.3); Red Blood Cell Count 3.62 M/mm3 (3.80-5.20); White Blood Cell Count 6.47 K/mm3 (4.00-11.30)
[2024-08-02 11:44] LABS: Bun/Creatinine Ratio 17.2 (12.0-20.0); Calcium, Blood 8.9 mg/dL (8.5-10.1); Creatinine, Blood 0.87 mg/dL (0.40-1.00); Potassium, Blood 3.4 mmol/L (3.5-5.5)
[2024-08-02] MEDS ORDERED: Potassium Chloride 10 Meq Tablet SA PO ONE (12:40)
--- NOTE | 2024-08-02 16:59 | NUR ---
SHIFT SUMMARY PT A&O TO SELF AND FAMILY AT TIMES. PT IS PARANOID/DEFENSIVE AND THINKS THAT SHE ISN'T A PT. PT IND IN ROOM, FAMILY WITH THEM AT ALL TIMES. PT STATES "I DON'T KNOW WHY YOU NEED TO DO THAT, BUT OKAY." WHEN GETTINGS VITALS CHECKED OR TAKING MEDICATION. PT REFUSED AFTERNOON VITALS D/T BP CUFF SQUEEZING TOO HARD. AMBULATING AROUND UNIT WITH FAMILY. VSS, REFUSED TELE, RA WITH SpO2> 92%. DENIES CP/PRESSURE/SOB. FAMILY AT BEDSIDE. PT HAD CALM AND RESTFUL DAY. NO OTHER EVENTS, WILL REPORT TO ONCOMING RN.
[2024-08-02 19:53] VITALS: BP 122/83
--- NOTE | 2024-08-02 21:48 | NUR ---
REQUESTED NO INTERRUPTIONS TONIGHT AND TO NOT ENTER ROOM UNLESS CALL LIGHT COMES ON, INCLUDING VITALS, ASSESSMENTS AND TRASHE REMOVAL. WREATH MAKER AND CHARGE NURSE AWARE.
--- NOTE | 2024-08-03 06:45 | NUR ---
SHIFT SUMMARY NEURO: ALERT TO SELF AND PARENTS. PT IS EASILY FRUSTRATED, FORGETFUL, AND SOMETIMES IMPULSIVE. PT SLEPT WELL THIS SHIFT. CARDIAC: WNL LUNGS: WNL GI/: LAST BM CHARTED ON 07/26
[2024-08-03 09:32] VITALS: BP 125/82
--- NOTE | 2024-08-03 18:09 | NUR ---
SHIFT SUMMARY PT A&O TO SELF AND FAMILY AT TIMES. PT IS PARANOID/DEFENSIVE AND THINKS THAT SHE ISN'T A PT. PT IND IN ROOM, FAMILY WITH THEM AT ALL TIMES. PT STATES "I DON'T KNOW WHY YOU NEED TO DO THAT, BUT OKAY." WHEN GETTINGS VITALS CHECKED OR TAKING MEDICATION. PT FAMILY REFUSED AFTERNOON VITALS D/T PTs KIDS VISITING AND THERAPIES IN ROOM BEING TOO MUCH FOR HER FOR ONE DAY. AMBULATING AROUND UNIT WITH FAMILY. VSS, REFUSED TELE, RA WITH SpO2> 92%. DENIES CP/PRESSURE/SOB. FAMILY AT BEDSIDE. PT HAD CALM AND RESTFUL DAY. NO OTHER EVENTS, WILL REPORT TO ONCOMING RN.
[2024-08-03 19:59] VITALS: BP 129/87
--- NOTE | 2024-08-03 20:00 | NUR ---
ASSESSMENT/ASSUMED CARE PT SITTING UP IN BED WITH FRIENDS AT BEDSIDE WATCHING TV. PT ANXIOUS WITH STAFF, BUT DID ALLOW VS. PT ALSO TOOK HS MEDS WITH WATER. UNABLE TO PREFORM ASSESSMENT DUE TO PT CONFUSION AND PARANOIA. PT IS EASILY FRUSTRATED, FORETFUL, AND SOMETIMES INPULSIVE. PT QUESTIONS EVERY ACTION TAKEN OR ANY QUESTIONS ASKED. RESP EVEN AND NONLABORED. PT AWAITING TRANSFER TO NEUROLOGICAL UNIT FOR REHAB. PT HOLDING CALL LIGHT AND FAMILY AT BEDSIDE.
--- NOTE | 2024-08-04 05:47 | NUR ---
SHIFT SUMMARY PT SLEPT DURING THE NIGHT WITH FAMILY AT BEDSIDE. THIS MORNING C/O BACK PAIN MED WITH TYLENOL AND ULTRAM. PT RESTING QUIETLY AT THIS TIME. SUPPORT GIVE TO PT AND FAMILY. REPORT TO ON COMING NURSE
[2024-08-04 09:14] VITALS: BP 123/84
--- NOTE | 2024-08-04 10:18 | NUR ---
am note this rn assumed care at 0700. vital signs stable. medical status no tele. patient is alert unaware of where she is and asking for her , joya. patient friends in the room stating that he will be in later and to start their morning routine. unable to do complete neuro check. patient started morning routine with her friends. patient is paranoid about the care being done and confused as to why she is here. when giving morning medications asking what it is for and this rn educated her is for her heart health and patient friends at bedside encouraged her of these meds and stating "everyone takes medications". patient took morning medications. patient denied pain, chest pain/pressure or shortness of breath. patient mother brought in breakfast and patient drinking a smoothie, computer technician by to do echo and this rn explained what it was to the patient and her friends. patient was apperhensive but agreed to do it. friends and family provided encouragement and mentioned it would be cool to see your own heart. unable to do an assessment at this time. patient performs care in room independently with help from family or friends in the room. this rn limits going into room unless called on or if someone needs to go in and asks discusses it with patient and family. awaiting an evalaution from a provider at a neuro facility from [place], supposed to be here next week.
--- NOTE | 2024-08-04 11:18 | NUR ---
Spiritual care visit attempted. Upon receiving a referral for spiritual care, I checked with patient's RN Jasmin and Patient's family in the hallway, all of whom stated that spiritual care is not needed at this time. I will continue to remain available.
--- NOTE | 2024-08-04 13:49 | NUR ---
update therapy dog in to visit with the patient.
[2024-08-04] MEDS ORDERED: PROG100 PO (14:13)
--- NOTE | 2024-08-04 17:22 | NUR ---
SHIFT SUMMARY patient independent with assistance from family in the room throughout the day. patient walked around the hospital with family. continue to keep stimuli low and minimize time in the room while awaiting assessment from [facility] in [place]. evening vitals refused. no acute changes throughout this shift. plan up to date.
--- NOTE | 2024-08-04 19:30 | NUR ---
ASSUMPTION OF CARE ASSUMD CARE OF PATIENT AT 1900, REPORT RECEIVED FROM DAIANA MCDONNELL. PT SITTING UP IN RECLINER ON ASSESSMENT. PT ANXIOUS/DEFENSIVE. PT ORIENTED TO SELF AND INTERMITENTLY TO FAMILY. PT ASKS WHY WITH ANY TASK, WHEN THE TASK IS EXPLAINED SHE STATES OKAY AND THEN ASKS AGAIN SHORTLY AFTER. PT INDEPENDENT IN THE ROOM, FAMILY AT THE BEDSIDE THAT ASSIST WITH CARE. PT FAMILY APPEARS TO HELP EASE THE PATIENT AND MAKE HER MORE COMFORTABLE/COOPERATIVE WITH CARE. PT UNSURE OF WHERE SHE IS, DOES NOT BELIEVE SHE IS A PATIENT. PT SKEPTICAL WITH CARE BUT COOPERATIVE. HR 70'S, MAP >65. PT ON RA, OXYGEN SATURATION >95%. PT DENIES PAIN ON ASSESMENT. NO IV ACCESS PRESENT. CALL LIGHT WITHIN REACH, CARE CONTINUES.
[2024-08-04 19:43] VITALS: BP 126/83
[2024-08-04 19:45] VITALS: BP 126/83
--- NOTE | 2024-08-05 04:52 | NUR ---
SHIFT SUMMARY NO ACUTE CHANGES THIS SHIFT. PT CONTINUES TO REST IN BED, FAMILY REMAINS AT THE BEDSIDE. PT INFORMED THIS RN THAT THE PT WAS HAVING PAIN, MEDICATED PER EMAR. CALL LIGHT WITHIN REACH, CARE CONTINUES.
[2024-08-05 09:15] VITALS: BP 127/89
--- NOTE | 2024-08-05 09:37 | NUR ---
am note this rn assumed care at 0700. vital signs stable. medical status no tele. patient is alert and oriented to self and family. patient does not remember mother being here yesterday and mother explained she left at 730pm yesterday. patient is questionative of care despite being told what is being done and when asked to do vitals patient agrees and then asks why it is being done. patient questionative of things family and friends do in room, such as mother asked for a nail file and begin filing her nail and patient asked why she was doing that, mother explained and then patient asked again. patient affect/mood defensive, flat, labile, withdrawn, anxious and cooperative. denies pain, chest pain/pressure or shortness of breath. see shift assessment for further detials. patient performs own adls in the room and family assists as needing. patient has a binder from [facility] and has created a routine/check list for the patient to do to start day and has goals in it for that day. spoke with md dobson about plan of care for patient. plan continues to remain decrease stimuli and encourage use of daily routine in tasks. assessment to be done next week from [facility] in [place] for potential placement for [facility].
--- NOTE | 2024-08-05 17:06 | NUR ---
shift summary patient has gone on two walks around the hospital with family today. patient has had family members in the room all day who assist her as needed. patient reported to family members a headache. when this rn went in to give medication, patient states she doesn't have one, brother at bedside mentioned how she just said she had one. patient took the tyelnol. see emar. no acute changes throughout the shift. plan remains up to date
[2024-08-05 20:15] VITALS: BP 117/76
--- NOTE | 2024-08-06 04:28 | NUR ---
SHIFT SUMMARY. SHIFT HAS BEEN UNREMARKABLE. PT ALLOWED FOR MED PASS AND VITALS TO BE COMPLETED EARLY IN SHIFT. WAS CLEARLY VERY PARANOID AND FEARFUL OF STAFF PERFORMING CARE. WOULD NOT PARTICIPATE WITH ASSESSMENT AND ASSESSMENT WAS NOT ABLE TO BE ADEQUATELY COMPLETED A CONSEQUENCE. SINCE THAT TIME, STAFF HAS REMAINED OUT OF ROOM MUCH POSSIBLE TO ALLOW PT TO SLEEP AND TO DISTURB LITTLE POSSIBLE. DISCUSSION WITH FAMILY AT BEDSIDE EARLY IN SHIFT. FAMILY WAS AGREEABLE AND THANKFUL FOR INTENT FOR STAFF TO REMAIN OUT OF ROOM FOR REMAINDER OF SHIFT UNLESS STAFF PRESENCE WAS REQUESTED. SINCE THAT TIME, FAMILY HAS BEEN AT BEDSIDE THROUGHOUT SHIFT AND NO STAFF PRESENCE HAS BEEN REQUESTED. CONTINUING TO MONITOR.
[2024-08-06 13:11] VITALS: BP 106/75
--- NOTE | 2024-08-06 18:23 | NUR ---
SHIFT SUMMARY: NO ACUTE EVENTS THIS SHIFT. PT HAS BEEN ALERT, COOPERATIVE W/CARE. MINIMAL STAFF TRAFFIC IN/OUT OF ROOM TO DECREASE STIMULI AND PROMOTE PT COMFORT. MULTIPLE FAMILY MEMBERS IN ROOM, PT INTERACTS APPROPRIATELY W/THEM AND GOES FOR MULTIPLE WALKS T/OUT DAY. PT TAKES MEDICATIONS W/OUT DIFFICULTY, SHOWERS INDEPENDENTLY.
[2024-08-06 20:30] VITALS: BP 124/79
--- NOTE | 2024-08-06 22:42 | NUR ---
ASSUMPTION OF CARE AFTER RECEIVING REPORT FROM LISA MCDONNELL, THIS RN ASSUMED CARE AT APPROX 1915. PATIENT ALERT AND ORIENTED TO SELF, HER . EXPERIENCES INCREASED ANXIETY, PARANOIA WITH FREQUENT ROUNDING FROM STAFF. VSS. DENIES CHEST PAIN, PRESSURE. ON ROOM AIR, SATs >90%. RR EVEN, UNLABORED. EXPERIENCING RIB PAIN WITH OCCASIONAL COUGHING OR DEEP BREATHING - MEDICATED PER EMAR. EVENING MEDICATIONS ADMINISTERED PER EMAR. AT BEDSIDE. CALL LIGHT IN REACH. PLAN TO REDUCE STIMULI T/O NIGHT AND ALLOW FOR GREATER REST, DECREASED ANXIETY/PARANOIA.
--- NOTE | 2024-08-07 07:07 | NUR ---
SHIFT SUMMARY NO ACUTE EVENTS OVERNIGHT. PATIENT SLEPT T/O NIGHT. COOPERATIVE WITH CARE. AT BEDSIDE. VSS. INDEPENDENT IN ROOM. RIB PAIN MANAGED PER EMAR. MINIMAL STAFF INTERACTION IN AND OUT OF ROOM TO DECREASE STIMULI AND PROMOTE PATIENT COMFORT. CALL LIGHT IN REACH. WILL CONTINUE TO MONITOR AND REPORT TO ONCOMING RN.
[2024-08-07 09:40] VITALS: BP 111/74
--- NOTE | 2024-08-07 17:59 | NUR ---
SHIFT SUMMARY: PT CONTINUES ALERT, INQUISITIVE ABOUT REASONING FOR CARE/TASKS THAT NEED TO BE COMPLETED, DENIES REMEMBERING THIS RN FROM THE DAY BEFORE OR TAKING HER MEDICATIONS ON A DAILY BASIS. SINCE PT IS QUITE INDEPENDENT AND LIKES PRIVACY IN THE RESTROOM, LAST BM IS UNKNOWN, FAMILY MEMBERS STATE THAT PT IS DRINKING FLUIDS, EATING FRUIT, DOESN'T C/O STOMACH PAIN. FAMILY WITH PT AT ALL TIMES. MINIMAL STAFF IN/OUT OF ROOM TO DECREASE STIMULI. CURRENT PLAN OF TRANSFERING PT TO NEURO REHAB CONTINUES IN PLACE.
[2024-08-07 19:49] VITALS: BP 125/82
--- NOTE | 2024-08-07 21:21 | NUR ---
ASSUMPTION OF CARE AFTER RECEIVING REPORT FROM LISA MCDONNELL, THIS RN ASSUMED CARE AT APPROX 1915. PATIENT ALERT, PLAYING A BOARD GAME WITH AND FRIEND AT BEDSIDE. COOPERATIVE WITH CARE - ABLE TO OBTAIN VS AND ADMINISTER EVENING MEDICATIONS. IS WINCING WITH PAIN WITH COUGHING, DEEP BREATHS IN HER RIBS BUT WHEN ASKED FURTHER PATIENT STATES "WHAT PAIN?" MEDICATED PER EMAR. DOES BECOME MORE ANXIOUS, PARNOID WITH ASSESSMENT QUESTIONS, PROCESS. LIMITED STIMULI FROM STAFF TO PROMOTE PATIENT COMFORT. AT BEDSIDE. VSS. INDEPENDENT IN ROOM, WITH ALL ADLs. CALL LIGHT IN REACH.
--- NOTE | 2024-08-08 07:06 | NUR ---
SHIFT SUMMARY NO ACUTE EVENTS OVERNIGHT. PATIENT SLEPT T/O NIGHT. AT BEDSIDE. LIMITED STAFF INTERACTION TO PROMOTE PATIENT COMFORT. RIB PAIN MANAGED PER EMAR. PATIENT INDEPENDENT IN ROOM. CALL LIGHT IN REACH. WILL CONTINUE TO MONITOR AND REPORT TO ONCOMING RN.
[2024-08-08 10:00] VITALS: BP 107/73
--- NOTE | 2024-08-08 12:08 | NUR ---
UPDATE: PT'S MOTHER REPORTS AN INCREASING COUGH OVER THE LAST FEW DAYS. THIS RN AT BEDSIDE; HARSH, WET COUGH NOTED. PT C/O PAIN WITH COUGHING. LUNG SOUNDS DIM/COARSE IN BILAT BASES. CALL TO MD NAVA. ORDER RECEIVED FOR 1V CHEST XR. PT AND FAMILY AGREEABLE W/ PLAN OF CARE. XR AT BEDSIDE AT THIS TIME.
--- NOTE | 2024-08-08 16:41 | NUR ---
END OF SHIFT NOTE: NO ACUTE EVENTS THIS SHIFT. PT REMAINS ALERT, ORIENTED TO SELF & FAMILY IN ROOM. COOPERATIVE W/ CARE BUT REMAINS PARANOID W/ ASSESSMENTS. STAFF INTERACTION LIMITED TO DECREASE STIMULI & PROMOTE PT COMFORT. VSS. WET, HARSH COUGH REMAINS; CHEST XR COMPLETED THIS SHIFT. PT C/O PAIN IMMEDIATELY AFTER COUGHING, MEDICATED PER EMAR. INDEPENDENT W/ ADL'S, ABLE TO GO ON FREQUENT WALKS W/ FAMILY. PER FAMILY, INTAKE & OUTPUT HAVE BEEN ADEQUATE THIS SHIFT. ABLE TO HAVE BOWEL MOVEMENT TODAY. NO OTHER NEEDS AT THIS TIME. AWAITING [facility] EVALUATION TOMORROW (08/09) AFTERNOON. CALL LIGHT IN REACH, FAMILY AT BEDSIDE.
[2024-08-08 20:24] VITALS: BP 124/77
--- NOTE | 2024-08-08 21:53 | NUR ---
ASSUMPTION OF CARE AFTER RECEIVING REPORT FROM JUAN MANUEL RN, THIS RN ASSUMED CARE AT APPROX 1915. PATIENT ALERT, VISITING WITH FRIEND AT BEDSIDE. COOPERATIVE WITH CARE. VS OBTAINED - STABLE. DENIES CHEST, PAIN PRESSURE. LUNG SOUNDS DIM BILAT BASES - SATs >90%. RR EVEN, UNLABORED. MEDICATED PER EMAR FOR RIB PAIN ASSOCIATED WITH OCCASIONAL CONGESTED COUGH, DEEP RESPIRATIONS. PATIENT INDEPENDENT IN ROOM. PLAN TO LIMIT STAFF INTERACTION FOR PATIENT COMFORT. CALL LIGHT IN REACH. FAMILY AT BEDSIDE.
--- NOTE | 2024-08-09 05:05 | NUR ---
SHIFT SUMMARY NO ACUTE EVENTS SINCE ASSUMPTION OF CARE NOTE. PATIENT SLEPT T/O NIGHT. INDEPENDENT IN ROOM. STAFF INTERACTION LIMITED FOR PATIENT COMFORT. AT BEDSIDE. VSS. RIB PAIN MANAGED PER EMAR WITH PO TYLENOL. INTAKE AND OUTPUT ADEQUATE T/O NIGHT PER . CALL LIGHT IN REACH. WILL CONTINUE TO MONITOR AND REPORT TO ONCOMING RN.
[2024-08-09 09:10] VITALS: BP 114/71
--- NOTE | 2024-08-09 19:30 | NUR ---
SHIFT SUMMARY: PT A&OX4. NO ACUTE NEURO CHANGES. WALKED AROUND HOSPITAL INDEPENDENTLY WITH FAMILY. PTS FAMILY MAKES PTS NEEDS KNOWN TO STAFF. PT STILL DOES NOT REMEMBER WHERE SHE IS AT OR WHY SHE IS HERE EVEN AFTER BEING REDIRACTED. [facility] CAME TO EVALUATE PT TODAY FOR POSSIBLE PLACEMENT AWAITING PLACEMENT PLAN. NO SIGNIFICANT EVENTS HAPPENED DURING SHIFT.
[2024-08-09 20:04] VITALS: BP 125/84
--- NOTE | 2024-08-09 20:09 | NUR ---
ASSUMPTION OF CARE NOTE. WAS ABLE TO ADMINISTER 2100 MEDICATIONS @ 1999, PT ALLOWED FOR VITALS TO BE CHECKED WELL. AFTER MEDICATION PASS AND VITALS, SPOKE WITH SHAWN OUTSIDE OF ROOM. REQUESTED FOR THIS RN TO NOT PERFORM ANY MORE CARE FOR THE REMAINDER OF THE SHIFT UNLESS REQUESTED BY PT OR FAMILY IN ROOM. REQUESTED THAT THIS RN NOT TO PERFORM ASSESSMENT, NOT TO WAKE FOR 0400 VITALS, AND NOT TO ENTER ROOM FOR REMAINDER OF SHIFT UNLESS REQUESTED TO DO SO BY FAMILY AT BEDSIDE OR BY PT. AFTER DISCUSSION WITH VALERIO CORTEZ RN, THIS IS ACCEPTABLE IT FOLLOWS THE CONSISTENT TREND REQUESTED/ENFORCED BY FAMILY. CONTINUE TO MONITOR ALLOWED BY FAMILY.
--- NOTE | 2024-08-09 20:21 | NUR ---
THIS RN UNABLE TO PERFORM SHIFT ASSESSMENT. FAMILY REFUSED. SEE PREVIOUS NOTE FOR EXPANDED DETAILS.
--- NOTE | 2024-08-10 04:46 | NUR ---
SHIFT SUMMARY. THIS RN HAS NOT ENTERED ROOM SINCE INITIAL NOTE PER FAMILY REQUEST. SEE PREVIOUS NOTE FOR EXPANDED DETAILS. UNABLE TO FURTHER COMMENT ON PATIENT CONDITION GIVEN LACK OF ABILITY FOR STAFF TO ENTER ROOM. FAMILY PREVIOUSLY REFUSED 0400 VITALS. CONTINUING TO MONITOR FOR REQUEST FOR SERVICES FROM FAMILY.
--- NOTE | 2024-08-10 09:45 | NUR ---
AM ASSESSMENT: Pt was resting in room with family prior to this time. ST and this RN into room to assess patient and give medications. Pt oriented to self and family only. Does not remember having cardiac arrest or any events after that. Does not re-orient. Pt is cooperative to care but does seem slightly paranoid. VSS. LS clear. HR reg. No edema noted. Pt denies pain and appears to be comfortable. Now working with Speech therapy. Pt family remains with patient at all times and lets staff know when she needs something.
[2024-08-10 09:51] VITALS: BP 102/70
[2024-08-10 12:10] LABS: BASOPHILS ABSOLUTE AUTO 0.04 K/mm3 (0.00-0.23); BASOPHILS PERCENT AUTO 1 % (0-2); EOSINOPHILS ABSOLUTE AUTO 0.07 K/mm3 (0.00-0.68); EOSINOPHILS PERCENT AUTO 1 % (0-6); Hematocrit 34.6 % (33.0-51.0); IMMATURE GRAN ABSOLUTE AUTO 0.02 K/mm3 (0.00-0.10); IMMATURE GRAN PERCENT AUTO 0 % (0-1); LYMPHOCYTES ABSOLUTE AUTO 1.31 K/mm3 (0.84-5.20); LYMPHOCYTES PERCENT AUTO 21 % (21-46); MONOCYTES ABSOLUTE AUTO 0.55 K/mm3 (0.16-1.47); MONOCYTES PERCENT AUTO 9 % (4-13); Mean Corpuscular HGB 30.2 pg (26.0-34.0); Mean Corpuscular HGB Conc 34.7 g/dL (31.5-36.5); Mean Corpuscular Volume 87 fL (80-100); Mean Platelet Volume 9.4 fL (9.1-12.4); NEUTROPHILS ABSOLUTE AUTO 4.38 K/mm3 (1.96-9.15); NEUTROPHILS PERCENT AUTO 69 % (41-73); Platelet Count 518 K/mm3 (150-400); RDW Standard Deviation 40.7 fL (35.1-46.3); Red Blood Cell Count 3.98 M/mm3 (3.80-5.20); White Blood Cell Count 6.37 K/mm3 (4.00-11.30)
[2024-08-10 12:41] LABS: Albumin, Blood 4.2 g/dL (3.4-5.0); Albumin/Globulin Ratio 1.1 (0.8-1.8); Bilirubin, Total 0.5 mg/dL (0.1-1.0); Bun/Creatinine Ratio 24.1 (12.0-20.0); Calcium, Blood 9.9 mg/dL (8.5-10.1); Creatinine, Blood 0.87 mg/dL (0.40-1.00); Globulin, Blood 3.9 g/dL (2.2-4.0); Potassium, Blood 3.9 mmol/L (3.5-5.5); Total Protein, Blood 8.1 g/dL (6.4-8.2)
--- NOTE | 2024-08-10 15:45 | NUR ---
SHIFT SUMMARY/ TRANSFER TO MEDICAL FLOOR: P&OX2. ORIENTED TO FAMILY AND SELF. PT IS UNAWARE OF WHERE SHE IS OR WHY SHE IS HERE. PT AMBULATE DOWN THE HOSPITAL HALLWAYS WITH FAMILY. PT NOT IN ANY DISTRESS AND DENIES ANY NEEDS. MORNING VS STABLE. NO SIGNIFICANT EVENTS OF ACUTE NEURO CHANGES HAPPENED WHILE IN CARE OF THIS RN. REPORT TO JUANITO Mercedes RN . PTS BELONGING COLLECTED ANY TAKEN TO ROOM 309 WITH PT AND FAMILY.
--- NOTE | 2024-08-10 15:59 | NUR ---
TRANSFER NOTE: CALLED AND GOT REPORT FROM KIRK MCDONNELL. PATIENT ARRIVED TO UNIT WITH FAMILY; WALKED. NO SIGNS OR SYMPTOMS OF DISTRESS. BELONGINGS AND PATIENT SETTLED IN ROOM. PLAN OF CARE ONGOING.
[2024-08-10 16:57] VITALS: BP 118/80
--- NOTE | 2024-08-11 05:44 | NUR ---
ADMITTED 07/23/24 WITH CARDIAC ARREST,STEMI WITH CPR X 1 HR. ANOXIC BRAIN INJURY. ORIENTED TO SELF AND INTERMITENTLY FAMILY. FAMILY REQUESTS QUESTIONS TO A MINIMUM TO DECREASE PT'S ANXIETY. IN ROOM OVER NIGHT. DC PLAN WEDNESDAY TO [place] FOR REHAB.
--- NOTE | 2024-08-11 07:54 | NUR ---
SHIFT CHANGE ASSUMED CARE OF PATIENT AT 0700. BEDSIDE SHIFT REPORT NOT DONE DUE TO FAMILY REQUEST. PER REPORT, PATIENT ASKING NOT TO BE DISTURBED UNTIL 8AM OR WHEN THEY COME OUT FOR PATIENT COMFORT AND REST.
[2024-08-11 09:01] VITALS: BP 123/78
--- NOTE | 2024-08-11 09:45 | NUR ---
AT AROUND O900 THIS NURSE AND SENIOR ANALYST WAS ALLOWED IN ROOM TO GATHER VITALS AND DO ASSESSMENT ON PT AND GIVE MORINING MEDICATION. PT WAS NOTED TO BE SITTING UP IN BED WITH HER FATHER AT BEDSIDE. PT WAS A&O TO SELF ONLY AND HER FATHER. PT WAS ABLE TO GIVE THIS NURSE HER NAME AND . PT NOTED TO GET ANXIOUS ABOUT TAKING MORING MEDICATIONS. PT IS UNABLE TO RECALL HER SITUATION OR WHATS GOING ON. FAMILY HAS REQUESTED THAT STAFF COME IN TO ROOM LITTLE POSSIBLE D/T IT GETS THE PT AGITATED AND ANXIOUS SHE CANT RECALL WHAT GOING ON AND WHY.
--- NOTE | 2024-08-11 14:55 | NUR ---
PT NOTED TO BE WORKING WITH THERAPY THIS SHIFT AND ALSO NOTED TO BE AMBULATING THE HALLS WITH FAMILY.
--- NOTE | 2024-08-11 15:16 | NUR ---
PT TRANSFERED TO ROOM 313 GAVE REPORT TO JANE MCDONNELL WHOM TOOK OVER CARE FOR THIS PT AT 1515.
[2024-08-11 16:57] VITALS: BP 118/77
[2024-08-11 20:15] VITALS: BP 116/86
--- NOTE | 2024-08-12 04:31 | NUR ---
SHIFT SUMMARY PATIENT HAD NO ACUTE CHANGES. ALERT TO SELF AND FAMILY. INDEPENDENT IN ROOM AND WALKS GAMBOA WITH FAMILY. DENIES CHEST PAIN, SOB, AND N/V. FAMILY REPORTS TO SKIP SECOND SET OF VITALS KEEPING MINIMAL CONTACT WITH PATIENT. NO IV ACCESS. VSS/AFEBRILE. SOMEONE STAYS WITH PATIENT AT ALL TIMES. CALL LIGHT IN REACH. BED IN LOWEST POSITION. WILL CONTINUE TO MONITOR UNTIL DAY SHIFT NURSE ASSUMES CARE.
[2024-08-12 11:34] VITALS: BP 115/68
--- NOTE | 2024-08-12 11:35 | NUR ---
Family requested that staff wait unti pt is awake to come in for meds and vs, she had a shower and is sitting up in bed, a/o to self and family, has no memory of events, and wasn't wanting to take po meds, she states she doesn't take all those meds, doesn't have a heart problem, parents are able to redirect her, she is able to ambulate, parents want to mostly be left alone in room. call light in reach.
--- NOTE | 2024-08-12 18:30 | NUR ---
no acute changes this shift, she ambulated around hospital several times with family today. call light in reach.
[2024-08-12 20:29] VITALS: BP 111/76
--- NOTE | 2024-08-13 04:53 | NUR ---
SHIFT SUMMARY PATIENT HAD NO ACUTE CHANGES. ALERT TO SELF AND FAMILY WITH CONFUSION. FAMILY REPORTED PATIENT TIRED AND TO COME IN ROOM EARLIER IN SHIFT TO PASS MEDS. PATIENT ASKED WHAT MEDS SHE'S TAKING MULTIPLE TIMES WHEN ANSWERED EACH TIME. VSS/AFEBRILE. LARGE FAMILY GROUP AT SHIFT CHANGES AND NEXT TWO PEOPLE STAY OVERNIGHT. FAMILY REPORTS TO KEEP MINIMAL CONTACT WITH PATIENT TO DECREASE ANXIETY. CALL LIGHT IN REACH. BED IN LOWEST POSITION. WILL CONTINUE TO MONITOR UNTIL DAY SHIFT NURSE ASSUMES CARE.
[2024-08-13 05:33] VITALS: BP 108/72
--- NOTE | 2024-08-13 18:11 | NUR ---
SHIFT SUMMARY: PT ORIENTED TO SELF AND FAMILY. PLEASANT AND COOERATIVE WITH CARE. DENIES PAIN THIS SHIFT. INDEPENDENT IN ROOM AND HALLWAY. WALKS AROUND FREQUENTLY WITH FAMILY/FRIENDS. PLAN TO TRANSPORT PT VIA [facility] TO [facility] FOR [facility]URO RE[facility]ITATION ON WEDNESDAY PENDING INSURANCE AUTH. CALL LIGHT IN REACH. FAMILY AT BEDSIDE.
--- NOTE | 2024-08-13 18:14 | NUR ---
SHIFT SUMMARY: PT A/O X4. PLEASANT AND COOPERATIVE WITH CARE. FLAT AFFECT NOTED. PT AWARE OF WHEN NEEDING ABD LLQ CHANGED. ABDOMINAL DRESSINGS SATURATED WITH THIN, MONTES, ODOROUS DRAINAGE. DRESSING CHANGED X2 THIS SHIFT W/O COMPLICATIONS PER WOUND CARE ORDERS. SBA TO BSC. PT C/O -06/27 PAIN IN ABDOMEN THIS SHIFT. PROCESSING TECHNOLOGIST PUMP IN PLACE. BREAKTHROUGH OXYCODONE GIVEN X1 AND TORADOL X2. TPN CONTINUING TO INFUSE @ 120/HR IN KAREN PICC. PT C/O NAUSEA SEVERAL TIMES THIS SHIFT. MEDICATED PER EMAR WITH PRN REGLAN AND ZOFRAN. AWAITING BED PLACEMENT AT [facility]. CALL LIGHT AND PROCESSING TECHNOLOGIST BUTTON IN REACH. BED IN LOWEST POSITION.
[2024-08-13 20:00] VITALS: BP 104/59
--- NOTE | 2024-08-14 04:39 | NUR ---
SHIFT SUMMARY PATIENT HAD NO ACUTE CHANGES. WALKING HALLS WITH FAMILY AT SHIFT CHANGE. ALERT TO SELF AND FAMILY. DENIES PAIN AND DID NOT REPEAT HERSELF ASKING SAME MEDICATIONS QUESTIONS PREVIOUSLY DONE LAST NOC SHIFT. PLAYED CARDS WITH FAMILY AND A FEW MEMBERS STAYED OVERNIGHT. CALL LIGHT IN REACH. BED IN LOWEST POSITION. WILL CONTINUE TO MONITOR UNTIL DAY SHIFT NURSE ASSUMES CARE.
--- NOTE | 2024-08-14 17:18 | NUR ---
SHIFT SUMMARY; PATIENT UP IN ROOM AND AMBULATING IN HALLWAY WITH FAMILY. NOTED TO HAVE PLEASANT AFFECT. WORKING WITH THERAPIES DURING DAY. SHE TAKES MEDICATIONS WHOLE WITH WATER. DENIES ANY PAIN OR DISCOMFORT FAMILY DOES ADL'S WITH PATIENT. PLAN FOR PATIENT TO TRANSFER TO OUT OF STATE FACILITY WHEN INSURANCE AUTH IS RECEIVED. WILL CONTINUE TO MONITOR THIS PATIENT CLOSELY UNTIL REPORT AND HAND OFF TO NOC SHIFT RM.
[2024-08-14 20:06] VITALS: BP 125/64
--- NOTE | 2024-08-14 22:35 | NUR ---
2007 PT SITTING IN CHAIR, MULT FAMILY MEMBERS IN ROOM. PT DENIES ANY DISCOMFORT AT THIS TIME. VERY POOR STM, ASKS SAME QUESTION THAT WAS JUST ASKED AND ANSWERED. FAMILY IS VERY SUPPORTIVE. CALL LIGHT IS IN REACH. FAMILY WILL BE STAYING THE NIGHT. PER FAMILY AND PT WISHES, WILL NOT ROUND ON PATIENT OR DO AM VS. FAMILY WILL MONITOR PATIENT AND LET US KNOW IF THEY NEED ANYTHIG. NO APPARENT SIGNS OF DISTRESS AT THIS TIME.
--- NOTE | 2024-08-14 22:37 | NUR ---
2200 FAMILY IN ROOM WITH PATIENT, NO NOISE COMING FROM ROOM, NO FAMILY HAS LET US KNOW THAT THEY NEED ANYTHING AT THIS TIME. WILL CONTINUE TO LISTEN BY PT'S DOOR AND LISTEN FOR FAMILY TO LET US KNOW OF ANY NEEDS.
--- NOTE | 2024-08-15 00:41 | NUR ---
0000 PT'S DOOR IS CLOSED, NO NOISE COMING FROM ROOM. FAMILY HAS NOT CALLED TO REPORT THE NEED FOR ANYTHING AT THIS TIME. WILL CONTINUE TO LISTEN FOR FAMILY AND PT CALL FOR NEEDS.
--- NOTE | 2024-08-15 02:26 | NUR ---
PT'S DOOR CLOSED, FAMILY IN ROOM, NO NOISE COMING FROM ROOM. NO FAMILY HAS COME OUT AT THIS TIME TO REPORT ANY NEEDS. WILL CONTINUE TO LISTEN FOR ANY REPORT OF NEEDS FROM PATIENT OR FAMILY.
--- NOTE | 2024-08-15 05:36 | NUR ---
0400 PT'S DOOR STILL CLOSED. FAMILY IN ROOM. NO NOISE COMING FROM ROOM. NO FAMILY HAS NOTIFIED US OF ANY PATIENT NEEDS AT THIS TIME. WILL CONTINUE TO LISTEN FOR FAMILY OR PATIENT TO LET US KNOW OF ANY PATIENT NEEDS.
--- NOTE | 2024-08-15 05:38 | NUR ---
PT IS AAO X 2, VERY POOR STM. FAMILY IN ROOM. PT DENIED ANY DISCOMFORT AT HS. PER PT AND PT'S FAMILY, NO ROUNDING OR VS UNTIL [id number] RACHEL. FAMILY AND PT DID NOT NOTIFY US OF ANY NEEDS AFTER HS ASSESSMENT/MEDS/VS, NO NOISE WAS HEARD COMING FROM THE PATIENT'S ROOM TO INDICATE ANY SIGNS OF DISTRESS OR NEED.
--- NOTE | 2024-08-15 05:56 | NUR ---
PT'S DOOR STILL CLOSED, FAMILY IN ROOM. NO NOISE COMING FROM ROOM. NO FAMILY HAS NOTIFIED US OF ANY NEEDS. NO OTHER CHANGES THIS SHIFT.
[2024-08-15 07:05] VITALS: BP 91/51
[2024-08-15 15:08] VITALS: BP 113/76
[2024-08-15 19:39] VITALS: BP 112/71
--- NOTE | 2024-08-16 07:52 | NUR ---
SHIFT SUMMARY FAMILY GIVING STRONG SUPPORT. PATIENT MENTATION THE SAME.
[2024-08-16 15:14] VITALS: BP 120/84
[2024-08-16] MEDS ORDERED: ACET325 PO (18:23)
[2024-08-16] MEDS ORDERED: ALMACONE SUSPE355 ML PO (18:24)
[2024-08-16] MEDS ORDERED: ASPI81CH PO (18:24)
[2024-08-16] MEDS ORDERED: ATOR40TA PO (18:25)
[2024-08-16] MEDS ORDERED: EPLE25 PO (18:25)
[2024-08-16] MEDS ORDERED: METO25ER PO (18:25)
[2024-08-16] MEDS ORDERED: JARDIANCE10 MG PO (18:25)
[2024-08-16] MEDS ORDERED: TICA90TA PO (18:26)
[2024-08-16] MEDS ORDERED: ENTRESTO 24 MG1 EACH PO (18:26)
[2024-08-16] MEDS ORDERED: SIME80CH PO (18:26)
[2024-08-16] MEDS ORDERED: TRAM50 PO (18:27)
[2024-08-16] MEDS ORDERED: TRAZ100 PO (18:27)
--- NOTE | 2024-08-16 18:39 | NUR ---
SHIFT SUMMARY PATIENT A/OX2-3, FORGETFUL AND STATES FRUSTRATION WITH MEMORY DEFECITS AND IS AWARE OF HER POOR MEMORY. UNABLE TO ANSWER SIMPLE QUESTION REGARDING FAMILY LIFE, CHILDREN'S AGES, LENGTH OF MARRIAGE, BUT ABLE TO TELL ME THE MONTH AND YEAR ACCURATELY. PLEASANT AND COOPERATIVE DESPITE HER FRUSTRATIONS. , SHAWN, AT BEDSIDE ALL SHIFT, AND OTHER FAMILY MEMBERS AND FRIENDS VISITING THROUGHOUT SHIFT. PATIENT PARTICIPATED IN OCCUPATIONAL THERAPY THIS SHIFT. NO OTHER MEDICAL CONCERNS AT THIS TIME. PLAN TO DISCHARGE TOMORROW TO [facility]ENS[facility] FACILITY [place], [place] CALLED [facility] AT 0730. PER , TRANSPORTATION HAS BEEN SET UP BY [facility]. PLAN TO BE PICKED UP BY AMBULANCE AT 0730 TO GO TO [facility] AND LEAVE BY JET. WILL TRAVEL WITH PATIENT AND FACILITY HAS APARTMENTS FOR FAMILY WHERE THE REST OF PATIENT'S FAMILY CAN STAY UNTIL DISCHARGE FROM [facility].
[2024-08-16 22:14] VITALS: BP 115/97
--- NOTE | 2024-08-17 04:36 | NUR ---
SHIFT SUMMARY PATIENT SLEPT ALL SHIFT, LEFT UNDISTURBED BY FAMILY REQUEST. REPOT GIVEN TO TRANSPORT TEAM MY PHONE. ORDER TO BE READY TO LEAVE AT 0700. AND TO HAVE US PLACE AN IV ACCESS BEFORE THEN.
[2024-08-17 07:41] VITALS: BP 117/76
--- NOTE | 2024-08-17 09:46 | NUR ---
DISCHARGE SUMMARY: PT DISCHARGED BY AMBULANCE AT 0805. BLUE SHEET GIVEN TO GRINDING ROOM INSPECTOR, AND DISCHARGE TEACHING PERFORMED TO PT AND . PT STILL VERY FORGETFUL AND CYCLING SAME QUESTIONS OVER AND OVER. SEEMED CONFUSED AND NOT UNDERSTANDING WHAT WAS HAPPENING. CONCERNED FOR HER KIDS. GOT UP AND TRANSFERRED TO THE BATHROOM AND THEN INTO STRETCHER WITHOUT INCIDENT. IV PLACED IN RIGHT FOREARM FOR TRNASFER. TOLERATED IT WELL.
== END 2024-08-17 08:05 | DRG 321 ==
LOC: ER 03:01 → PCU 03:33 → ICUE 03:33 → MEDS 03:33 → ICUE 05:12 → PCU 07-28 17:00 → MEDS 08-10 16:11 → ENPENDDIS 08-18 15:44
PROVIDERS: Family Medicine; Internal Medicine; Internal Medicine Critical Care Medicine; Internal Medicine Interventional Cardiology; Registered Nurse; Student in an Organized Health Care Education/Training Program; ADMIT Hospitalist
PROC: 027034Z Dilation of Coronary Artery, One Artery with Drug-eluting Intraluminal Device, Percutaneous Approach (ICD-10-PCS; principal; 2024-07-23)
PROC: 0CC Mouth and Throat, Extirpation (ICD-10-PCS; 2024-07-23)
PROC: B2111ZZ Fluoroscopy of Multiple Coronary Arteries using Low Osmolar Contrast (ICD-10-PCS; 2024-07-23)
PROC: 4A023N7 Measurement of Cardiac Sampling and Pressure, Left Heart, Percutaneous Approach (ICD-10-PCS; 2024-07-23)
PROC: 5A1945Z Respiratory Ventilation, 24-96 Consecutive Hours (ICD-10-PCS; 2024-07-23)
PROC: 0BH17EZ Insertion of Endotracheal Airway into Trachea, Via Natural or Artificial Opening (ICD-10-PCS; 2024-07-23)
PROC: 3E033XZ Introduction of Vasopressor into Peripheral Vein, Percutaneous Approach (ICD-10-PCS; 2024-07-23)
PROC: 30233J1 Transfusion of Nonautologous Serum Albumin into Peripheral Vein, Percutaneous Approach (ICD-10-PCS; 2024-07-23)
PROC: 0CJY8ZZ Inspection of Mouth and Throat, Via Natural or Artificial Opening Endoscopic (ICD-10-PCS; 2024-07-25)
DX: I21.09 ST elevation (STEMI) myocardial infarction involving other coronary artery of anterior wall (principal); G93.41 Metabolic encephalopathy; I46.2 Cardiac arrest due to underlying cardiac condition; I49.01 Ventricular fibrillation; J96.01 Acute respiratory failure with hypoxia; J69.0 Pneumonitis due to inhalation of food and vomit; R57.0 Cardiogenic shock; D62 Acute posthemorrhagic anemia; E87.4 Mixed disorder of acid-base balance; N17.9 Acute kidney failure, unspecified; G93.1 Anoxic brain damage, not elsewhere classified; I50.22 Chronic systolic (congestive) heart failure; I67.89 Other cerebrovascular disease; F05 Delirium due to known physiological condition; K13.79 Other lesions of oral mucosa; E87.6 Hypokalemia; B95.61 Methicillin susceptible Staphylococcus aureus infection as the cause of diseases classified elsewhere; R45.1 Restlessness and agitation; I25.5 Ischemic cardiomyopathy; I25.10 Atherosclerotic heart disease of native coronary artery without angina pectoris; R73.9 Hyperglycemia, unspecified; Z79.899 Other long term (current) drug therapy; G47.00 Insomnia, unspecified; Z88.5 Allergy status to narcotic agent; Z90.49 Acquired absence of other specified parts of digestive tract; Z95.5 Presence of coronary angioplasty implant and graft; Z79.891 Long term (current) use of opiate analgesic; Z98.890 Other specified postprocedural states
CPT/HCPCS: 0241U; 36415; 36430; 36556; 51702; 70450; 70551; 71045; 71260; 76937; 80047; 80048; 80053; 80061; 80069; 80320; 81001; 82803; 82947; 83735; 83880; 84100; 84443; 84484; 85014; 85018; 85025; 85027; 85347; 85610; 86850; 86900; 86901; 86923; 87040; 87070; 87077; 87086; 87186; 87205; 87507; 88305; 92523; 93005; 93010; 93308; 93454; 94002; 94003; 94640; 94664; 94760; 94762; 96374-59; 96375-59; 97112; 97116; 97129; 97130; 97162; 97165; 97530; 99152; 99153; 99291-25; A9270; C1725; C1751; C1757; C1769; C1874; C1887; C1894; C8929; C9606; J0282; J0461; J0696; J1170; J1644; J1650; J1885; J2020; J2060; J2250; J2371; J2405; J2470; J2543; J2704; J2765; J3010; J3246; J3475; J3480; J7030; J7050; J7060; L0160; P9016; P9047; Q9957; Q9967